=== PATIENT | female | born 1950 | race Caucasian/White ===

== ENCOUNTER 2016-08-24 09:06 | Day surgery (SDC) | payer BC ==
[2016-08-22 10:50] VITALS: BMI 26.4
[~2016-08-24 09:06] MED LIST: LACTATED RINGERS 1,000 ML IV SCH
[2016-08-24] MEDS ORDERED: LIDOCAINE 1% 20 ML VIAL (10MG/ML) FOR IV START INTRADERMA ONE (09:20)
[2016-08-24 09:31] VITALS: TEMP 97
[2016-08-24] MEDS ORDERED: PROPOFOL 10 MG/ML 20 ML VIAL IV ONE (09:55)
[2016-08-24 10:46] VITALS: BP 110/72; PULSE 68; RESP 18
--- NOTE | 2016-08-24 10:47 | P.PCN ---
Date of Procedure: 08/24/16 Procedure(s) Performed: BRIEF HISTORY: Patient is a 65-year-old pleasant white female scheduled for an elective colonoscopy as a part of screening for colorectal neoplasia. PROCEDURE PERFORMED: Colonoscopy with snare polypectomy. PREOPERATIVE DIAGNOSIS: Screening for colon cancer. IV sedation per Anesthesia. PROCEDURE: After informed consent was obtained, the patient, was brought into the endoscopy unit. IV conscious sedation was administered by Anesthesia under continuous monitoring. Initially the Olympus CF-160 flexible video colonoscope was then inserted in the rectum, gradually advanced into the cecum without any difficulty. Careful examination was performed as the scope was gradually being withdrawn. Ileocecal valve and the appendiceal orifice were visualized and appeared normal. Prep was excellent. Mucosa of the cecum, ascending colon, transverse colon, descending colon, appeared normal. In the rectum; there was a 2 cm thick pedunculated polyp that was removed by snare polypectomy. In the proximal rectum there were 2 polyps measuring 1 cm size removed by snare polypectomy. Moderate sigmoid diverticulosis seen. The rest of the sigmoid colon, and rectum appeared normal. Retroflexion was performed in the rectum and no lesions were seen. The patient tolerated the procedure well. IMPRESSION: 2 cm thick pedunculated sigmoid polyp status post polypectomy 1 cm 2 proximal rectal polyps status post polypectomy Moderate sigmoid diverticula cyst. RECOMMENDATIONS: Findings of this examination were discussed with the patient as well as her family. She was advised to follow with the biopsy results. If the biopsy shows a tubular adenoma she can have a repeat colonoscopy in 3 years.
== END 2016-08-24 11:14 | disposition home or self-care (01) ==
LOC: ORWHC2ENDO 09:06
PROVIDERS: ATTEND Internal Medicine Gastroenterology
DX: Z12.11 Encounter for screening for malignant neoplasm of colon (principal); D12.5 Benign neoplasm of sigmoid colon; D12.8 Benign neoplasm of rectum; K57.30 Diverticulosis of large intestine without perforation or abscess without bleeding; Z72.0 Tobacco use
CPT/HCPCS: 45385; 88305; J2704; 99153

== ENCOUNTER → 2019-01-09 | Outpatient (CLI) | payer MEDICARE ==
--- NOTE | 2019-01-09 15:41 | XR ---
EXAMINATION TYPE: XR chest 2V DATE OF EXAM: 01/09/2019 COMPARISON: NONE HISTORY: Back pain.Z00.00 per order. TECHNIQUE: Frontal and lateral views of the chest are obtained. FINDINGS: There is no focal air space opacity, pleural effusion, or pneumothorax seen. The cardiac silhouette size is within normal limits. Multilevel spurring of the thoracic spine is present. IMPRESSION: No acute cardiopulmonary process.
== END | disposition home or self-care (01) ==
LOC: RADXRMAIN 15:25
PROVIDERS: ATTEND Family Medicine
DX: Z00.00 Encounter for general adult medical examination without abnormal findings (principal)
CPT/HCPCS: 71046

== ENCOUNTER → 2020-12-30 | Outpatient (CLI) | payer MEDICARE | END | disposition home or self-care (01) | LOC: LABWHC1 14:08 | PROVIDERS: ATTEND Psychiatry & Neurology Pain Medicine | DX: E55.9 Vitamin D deficiency, unspecified (principal) | CPT/HCPCS: 36415; 82306 ==

== ENCOUNTER 2021-08-22 18:05 | Emergency (ER) | payer MEDICARE ==
[2021-08-22] MEDS ORDERED: SODIUM CHLORIDE 0.9% 500 ML 500 ML IV STA (18:18)
[2021-08-22 18:19] VITALS: PULSE 71; RESP 18; TEMP 98.5
--- NOTE | 2021-08-22 18:29 | ED ---
General Adult HPI - General Chief complaint: Altered Mental Status Stated complaint: weakness Time Seen by Provider: 08/22/21 18:10 Source: patient, EMS, RN notes reviewed, old records reviewed Mode of arrival: EMS Limitations: altered mental status, physical limitation - History of Present Illness Initial comments: This is a 70-year-old female presents emergency Department from a alf with a history of dementia. Patient herself does not know why she is here she has no complaints she denies chest pain difficult breathing shortness of breath or any injury. Patient denies any nausea vomiting. Patient was sent in for generalized weakness onset 3 days ago and we have no further history because no one came with the patient and there is no family member here at this time. - Related Data Home Medications Medication Instructions Recorded Confirmed No Known Home Medications 08/22/16 08/22/16 Allergies Allergy/AdvReac Type Severity Reaction Status Date / Time No Known Allergies Allergy Verified 08/22/21 20:00 Review of Systems ROS Statement: Those systems with pertinent positive or pertinent negative responses have been documented in the HPI. ROS Other: All systems not noted in ROS Statement are negative. Past Medical History Past Medical History: No Reported History, Unable to Obtain History of Any Multi-Drug Resistant Organisms: None Reported, Unobtainable Past Surgical History: No Surgical Hx Reported, Unable to Obtain Past Anesthesia/Blood Transfusion Reactions: No Reported Reaction, Motion Sickness Additional Past Anesthesia/Blood Transfusion Reaction / Comment(s): WORK UP DURING SURGERY WITH FOOT SURGERY" Past Psychological History: Anxiety, Bipolar Smoking Status: Unknown if ever smoked Past Alcohol Use History: Unable to Obtain, Rare Past Drug Use History: None Reported, Unable to Obtain - Past Family History Father Family Medical History: Cancer General Exam - General Exam Comments Initial Comments: GENERAL: Patient is well-developed and well-nourished. Patient is nontoxic and well- hydrated and is in no acute distress. ENT: Neck is soft and supple. No significant lymphadenopathy is noted. Oropharynx is clear. Moist mucous membranes. Neck has full range of motion without eliciting any pain. EYES: The sclera were anicteric and conjunctiva were pink and moist. Extraocular movements were intact and pupils were equal round and reactive to light. Eyelids were unremarkable. PULMONARY: Unlabored respirations. Good breath sounds bilaterally. No audible rales rhonchi or wheezing was noted. CARDIOVASCULAR: There is a regular rate and rhythm without any murmurs gallops or rubs. ABDOMEN: Soft and nontender with normal bowel sounds. SKIN: Skin is clear with no lesions or rashes and otherwise unremarkable. NEUROLOGIC: Patient is alert and oriented 2. Cranial nerves II through XII are grossly intact. Motor and sensory are also intact. Normal speech, volume and content. Symmetrical smile. MUSCULOSKELETAL: Normal extremities with adequate strength and full range of motion. No lower extremity swelling or edema. No calf tenderness. LYMPHATICS: No significant lymphadenopathy is noted PSYCHIATRIC: Normal psychiatric evaluation. Limitations: altered mental status, physical limitation Course Vital Signs 08/22/21 18:10 Temperature 98.5 F Pulse Rate 71 Respiratory 18 Rate Blood Pressure 119/74 O2 Sat by Pulse 96 Oximetry Medical Decision Making - Medical Decision Making EKG shows sinus bradycardia at a rate of 58 bpm AK interval is 144 QRS is 65 Q-T intervals 353 QTC is 349. Patient's EKG shows no ST segment elevation or depression. Chest x-ray shows no acute abnormality. Patient received a liter fluid while in the emergency department and I will back and reevaluated the patient's daughter was in the room and she stated that the patient was now back to her baseline. The main reason they sent her in is because she was weak all day today and wasn't eating or drinking today but this evening she did start drinking after she received fluids in the emergency department she seemed much improved. Patient herself had no complaints the daughter felt as though at this point time she was safe to go back to her facility. Daughter stated that the patient just started carbidopa yesterday morning and this morning. - Lab Data Result diagrams: 08/22/21 18:38 08/22/21 18:36 Lab Results 08/22/21 08/22/21 08/22/21 Range/Units 18:36 18:36 18:36 WBC (3.8-10.6) k/uL RBC (3.80-5.40) m/uL Hgb (11.4-16.0) gm/dL Hct (34.0-46.0) % MCV (80.0-100.0) fL MCH (25.0-35.0) pg MCHC (31.0-37.0) g/dL RDW (11.5-15.5) % Plt Count (150-450) k/uL MPV Neutrophils % % Lymphocytes % % Monocytes % % Eosinophils % % Basophils % % Neutrophils # (1.3-7.7) k/uL Lymphocytes # (1.0-4.8) k/uL Monocytes # (0-1.0) k/uL Eosinophils # (0-0.7) k/uL Basophils # (0-0.2) k/uL Sodium 137 (137-145) mmol/L Potassium 3.9 (3.5-5.1) mmol/L Chloride 104 (98-107) mmol/L Carbon Dioxide 24 (22-30) mmol/L Anion Gap 9 mmol/L BUN 17 (7-17) mg/dL Creatinine 0.71 (0.52-1.04) mg/dL Est GFR (CKD-EPI)AfAm >90 (>60 ml/min/1.73 sqM) Est GFR (CKD-EPI)NonAf 88 (>60 ml/min/1.73 sqM) Glucose 121 H (74-99) mg/dL Plasma Lactic Acid Giovany 1.7 (0.7-2.0) mmol/L Calcium 9.0 (8.4-10.2) mg/dL Magnesium 2.1 (1.6-2.3) mg/dL Total Bilirubin 0.7 (0.2-1.3) mg/dL AST 25 (14-36) U/L ALT 15 (4-34) U/L Alkaline Phosphatase 75 (38-126) U/L Troponin I <0.012 (0.000-0.034) ng/mL Total Protein 7.1 (6.3-8.2) g/dL Albumin 3.7 (3.5-5.0) g/dL Urine Color Urine Appearance (Clear) Urine pH (5.0-8.0) Ur Specific [place] (1.001-1.035) Urine Protein (Negative) Urine Glucose (UA) (Negative) Urine Ketones (Negative) Urine Blood (Negative) Urine Nitrite (Negative) Urine Bilirubin (Negative) Urine Urobilinogen (<2.0) mg/dL Ur Leukocyte Esterase (Negative) Urine RBC (0-5) /hpf Ur Squamous Epith Cells (0-4) /hpf 08/22/21 08/22/21 Range/Units 18:38 18:59 WBC 4.9 (3.8-10.6) k/uL RBC 4.17 (3.80-5.40) m/uL Hgb 13.2 (11.4-16.0) gm/dL Hct 40.2 (34.0-46.0) % MCV 96.5 (80.0-100.0) fL MCH 31.6 (25.0-35.0) pg MCHC 32.8 (31.0-37.0) g/dL RDW 13.7 (11.5-15.5) % Plt Count 194 (150-450) k/uL MPV 8.6 Neutrophils % 62 % Lymphocytes % 26 % Monocytes % 6 % Eosinophils % 4 % Basophils % 1 % Neutrophils # 3.0 (1.3-7.7) k/uL Lymphocytes # 1.3 (1.0-4.8) k/uL Monocytes # 0.3 (0-1.0) k/uL Eosinophils # 0.2 (0-0.7) k/uL Basophils # 0.1 (0-0.2) k/uL Sodium (137-145) mmol/L Potassium (3.5-5.1) mmol/L Chloride (98-107) mmol/L Carbon Dioxide (22-30) mmol/L Anion Gap mmol/L BUN (7-17) mg/dL Creatinine (0.52-1.04) mg/dL Est GFR (CKD-EPI)AfAm (>60 ml/min/1.73 sqM) Est GFR (CKD-EPI)NonAf (>60 ml/min/1.73 sqM) Glucose (74-99) mg/dL Plasma Lactic Acid Giovany (0.7-2.0) mmol/L Calcium (8.4-10.2) mg/dL Magnesium (1.6-2.3) mg/dL Total Bilirubin (0.2-1.3) mg/dL AST (14-36) U/L ALT (4-34) U/L Alkaline Phosphatase (38-126) U/L Troponin I (0.000-0.034) ng/mL Total Protein (6.3-8.2) g/dL Albumin (3.5-5.0) g/dL Urine Color Yellow Urine Appearance Clear (Clear) Urine pH 7.0 (5.0-8.0) Ur Specific [place] 1.018 (1.001-1.035) Urine Protein Negative (Negative) Urine Glucose (UA) Negative (Negative) Urine Ketones Negative (Negative) Urine Blood Moderate H (Negative) Urine Nitrite Negative (Negative) Urine Bilirubin Negative (Negative) Urine Urobilinogen <2.0 (<2.0) mg/dL Ur Leukocyte Esterase Negative (Negative) Urine RBC 40 H (0-5) /hpf Ur Squamous Epith Cells <1 (0-4) /hpf Disposition Clinical Impression: Weakness, Adverse reaction to drug Disposition: HOME SELF-CARE Condition: Good Instructions (If sedation given, give patient instructions): Weakness (ED), Carbidopa/Levodopa (By mouth) Is patient prescribed a controlled substance at d/c from ED?: No Referrals: Phoenix Blakely MD [Primary Care Provider] - 1-2 days Time of Disposition: 20:07
[2021-08-22 18:47] LABS: Basophils # (A) 0.1 k/uL (0-0.2); Basophils % (A) 1 %; Eosinophils # (A) 0.2 k/uL (0-0.7); Eosinophils % (A) 4 %; HCT 40.2 % (34.0-46.0); HGB 13.2 gm/dL (11.4-16.0); Lymphocytes # (A) 1.3 k/uL (1.0-4.8); Lymphocytes % (A) 26 %; MCH 31.6 pg (25.0-35.0); MCHC 32.8 g/dL (31.0-37.0); MCV 96.5 fL (80.0-100.0); Mean Platelet Volume 8.6; Monocytes # (A) 0.3 k/uL (0-1.0); Monocytes % (A) 6 %; Neutrophils % (A) 62 %; Platelet Count 194 k/uL (150-450); RBC 4.17 m/uL (3.80-5.40); RDW 13.7 % (11.5-15.5); WBC 4.9 k/uL (3.8-10.6)
[2021-08-22 19:01] LABS: ALT 15 U/L (4-34); AST 25 U/L (14-36); African American GFR (CKD) >90 (>60 ml/min/1.73 sqM); Albumin 3.7 g/dL (3.5-5.0); Alkaline Phosphatase 75 U/L (38-126); Anion Gap 9 mmol/L; Blood Urea Nitrogen 17 mg/dL (7-17); Carbon Dioxide 24 mmol/L (22-30); Chloride 104 mmol/L (98-107); Glucose 121 mg/dL (74-99); Magnesium 2.1 mg/dL (1.6-2.3); Non-African American GFR(CKD) 88 (>60 ml/min/1.73 sqM); Potassium 3.9 mmol/L (3.5-5.1); Sodium 137 mmol/L (137-145); Total Bilirubin 0.7 mg/dL (0.2-1.3); Total Protein 7.1 g/dL (6.3-8.2)
--- NOTE | 2021-08-22 19:22 | XR ---
EXAMINATION TYPE: XR chest 2V DATE OF EXAM: 08/22/2021 7:17 PM COMPARISON:Chest radiographs from 01/09/2019 TECHNIQUE: XR chest 2V Frontal and lateral views of the chest. CLINICAL INDICATION:Female, 70 years old with history of Weakness; FINDINGS: Lungs/Pleura: There is no evidence of pleural effusion, focal consolidation, or pneumothorax. Pulmonary vascularity: Unremarkable. Heart/mediastinum: Cardiomediastinal silhouette is unremarkable. Musculoskeletal: No acute osseous pathology. IMPRESSION: No acute cardiopulmonary disease/process.
[2021-08-22 19:50] LABS: Appearance,Urine Clear (Clear); Bilirubin,Urine Negative (Negative); Blood,Urine Moderate (Negative); Color,Urine Yellow; Glucose,Urine (UA) Negative (Negative); Ketones,Urine Negative (Negative); Leukocyte Esterase,Urine Negative (Negative); Nitrite,Urine Negative (Negative); Protein,Urine Negative (Negative); RBC,Urine 40 /hpf (0-5); Specific Gravity,Urine 1.018 (1.001-1.035); Squamous Epithelial Cell,Urine <1 /hpf (0-4); Urobilinogen,Urine <2.0 mg/dL (<2.0)
[2021-08-22 20:16] LABS: Partial Thromboplastin Time 22.1 sec (22.0-30.0); Prothrombin Time 10.9 sec (9.0-12.0)
[2021-08-22 20:17] VITALS: BP 117/81
== END 2021-08-22 20:21 | disposition home or self-care (01) ==
LOC: SUPCPDRO 18:05 → EC 18:05
DX: R53.1 Weakness (principal); T50.905A Adverse effect of unspecified drugs, medicaments and biological substances, initial encounter; F41.9 Anxiety disorder, unspecified; F31.9 Bipolar disorder, unspecified
CPT/HCPCS: 36415; 71046; 80053; 81001; 83605; 83735; 84484; 85025; 85610; 85730; 96360; 99285

== ENCOUNTER 2022-02-28 08:55 | Day surgery (SDC) | payer MEDICARE ==
[2022-02-27 13:12] VITALS: BMI 25.4
--- NOTE | 2022-02-27 20:21 | P.GSHP ---
History of Present Illness H&P Date: 02/27/22 71 yo female with dementia. sHe has recurrent utis. She had an evaluation that identified some small stones in the bladder. Due to her dementia she comes for cysto probable cystolithotripsy. - Review of Systems ROS unobtainable: Reports: due to mental status Past Medical History Past Medical History: Dementia, Thyroid Disorder Additional Past Medical History / Comment(s): "Recent UTI, finished antibiotics today." History of Any Multi-Drug Resistant Organisms: None Reported Past Surgical History: Bladder Surgery Additional Past Surgical History / Comment(s): Bladder lift, nasal surgery, foot surgery. Past Anesthesia/Blood Transfusion Reactions: No Reported Reaction, Motion Sickness Additional Past Anesthesia/Blood Transfusion Reaction / Comment(s): "WORK UP DURING SURGERY WITH FOOT SURGERY" Past Psychological History: Anxiety, Bipolar Smoking Status: Former smoker, Unknown if ever smoked Past Alcohol Use History: None Reported Additional Past Alcohol Use History / Comment(s): Quit smoking 1 yr ago. STARTED SMOKING AT AGE 19. Past Drug Use History: None Reported - Past Family History Father Family Medical History: Cancer Sister(s) Family Medical History: Cancer Medications and Allergies Home Medications Medication Instructions Recorded Confirmed Type Acetaminophen [Tylenol Arthritis] 650 mg PO DAILY@0700 08/22/21 02/27/22 History Acetaminophen [Tylenol Arthritis] 650 mg PO Q8H PRN 08/22/21 02/27/22 History Cholecalciferol [Vitamin D3 (125 125 mcg PO DAILY@0708/22/21 02/27/22 History Mcg = 5000 Iu)] LORazepam [Ativan] 1 mg PO TID PRN 08/22/21 02/27/22 History Levothyroxine Sodium [Synthroid] 25 mcg PO DAILY@0708/22/21 02/27/22 History Memantine [Namenda] 10 mg PO BID@0700,1900 08/22/21 02/27/22 History Nystatin 100,000Unit/gm Cream 1 applic TOPICAL BID PRN 08/22/21 02/27/22 History [Mycostatin Cream] Magnesium Hydroxide [Milk of 2,400 mg PO DAILY PRN 10/05/21 02/27/22 History Magnesia] Escitalopram [Lexapro] 20 mg PO DAILY@0700 02/13/22 02/27/22 History Cephalexin [Keflex] 500 mg PO Q12HR 02/27/22 02/27/22 History Allergies Allergy/AdvReac Type Severity Reaction Status Date / Time seasonal Allergy Dyspnea Uncoded 02/27/22 12:54 Surgical - Exam - General well developed, well nourished, no distress - Eyes normal ocular movement, no icteric - ENT no hearing loss, no congestion - Neck no masses, trachea midline - Respiratory normal respiratory effort, clear to auscultation - Abdomen Abdomen: soft, non tender, no guarding, no rigid, no rebound - Integumentary no rash, no abnormal pigmentation - Neurologic confused Assessment and Plan Assessment: Impression: recurrent uti, bladder stones, dementia Plan: cysto with cystolithotripsy
[~2022-02-28 08:55] MED LIST changes: +AMPICILLIN 1,000 MG in SODIUM CHLORIDE 0.9% 50 ML IVPB PRN; +GENTAMICIN IN NACL ISO-OSM PMX 80 MG in SALINE 1 100ML.BAG IVPB PRN; +HYDROmorphone 0.5 MG/0.5 ML SYRINGE IVP PRN; +LIDOCAINE 1% (10MG/ML) FOR IV START INTRADERMA PRN; +ONDANSETRON 4 MG/2 ML VIAL IVP ONE
[2022-02-28 09:43] VITALS: RESP 16
[2022-02-28] MEDS ORDERED: ONDANSETRON 4 MG/2 ML VIAL IVP ONE (09:49)
[2022-02-28] MEDS ORDERED: ePHEDrine 50 MG/ML 1 ML VIAL ONE (10:06)
[2022-02-28] MEDS ORDERED: SUCCINYLCHOLINE CHLORIDE 200 MG/10 ML VIAL IV ONE (10:06)
[2022-02-28] MEDS ORDERED: GLYCOPYRROLATE 0.2 MG/ML 2 ML VIAL ONE (10:06)
[2022-02-28] MEDS ORDERED: ROCURONIUM 10 MG/ML (5 ML VIAL) IV ONE (10:06)
[2022-02-28] MEDS ORDERED: fentaNYL (PF) 50 MCG/ML 2 ML AMP ONE (10:06)
[2022-02-28] MEDS ORDERED: LIDOCAINE 2% INJ 20 MG/ML (2 ML VIAL) ONE (10:06)
[2022-02-28] MEDS ORDERED: PROPOFOL 10 MG/ML 20 ML VIAL IV ONE (10:06)
[2022-02-28] MEDS ORDERED: NEOSTIGMINE 1 MG/ML 10 ML VIAL ONE (10:06)
[2022-02-28] MEDS ORDERED: IOPAMIDOL-370 50ML BTL MISCELLANE ONE (10:32)
--- NOTE | 2022-02-28 10:50 | P.OP ---
Date of Procedure: 02/28/22 Preoperative Diagnosis: Recurrent urinary tract infection, bladder stone Postoperative Diagnosis: Same Procedure(s) Performed: Cystoscopy, cystolithotripsy with laser, bilateral retrograde pyelograms Anesthesia: ROCAELA Surgeon: Hemant Horton Estimated Blood Loss (ml): 0 Pathology: other (Stone) Condition: stable Disposition: PACU Indications for Procedure: The patient is a 71-year-old female who lives in adult foster care due to mental handicap. She has had recurring urinary infection. She had a computed tomography scan that showed a bladder stone. She comes for cystoscopy cystolithotripsy and retrograde pyelogram Description of Procedure: Patient brought to the operating suite. Given general anesthesia. Placed lithotomy position with sterile prep and drape. It is noted that the patient has chronic excoriation from incontinence as well as stool per rectum. After sterile prep and drape cystoscopy Foroblique lens and 21-Finnish sheath identifies a chronically inflamed bladder. The ureteral orifices are normal. There is a 1 cm posterior wall bladder stone. In370 probe the stone was broken into tiny pieces and flushed out of the bladder. With an 8cone-tip catheter bilateral grade pyelogram performed. The ureters of normal course and caliber. No filling defect. The collecting system is normal. The ureters drained normally The bladder is drained the stones are collected the patient is awakened and returned recovery room good condition Impression bladder calculus removed. No more retrograde pyelograms. Recurrent infection can be aggravated by the stone but is probably due to her chronic incontinence both urine and stool. This is been related to the foster retirement.
--- NOTE | 2022-02-28 10:59 | FL ---
Fluoroscopy INDICATION: Pain FINDINGS: Fluoroscopy time: 25 seconds. Images obtained: 6. IMPRESSIONS: 1. Documentation of fluoroscopy.
[2022-02-28 11:08] VITALS: TEMP 97
[2022-02-28 11:58] VITALS: BP 113/60; PULSE 74
== END 2022-02-28 12:18 ==
LOC: OR 08:55
PROVIDERS: ATTEND Urology
DX: N21.0 Calculus in bladder (principal); N39.0 Urinary tract infection, site not specified; F03.90 Unspecified dementia, unspecified severity, without behavioral disturbance, psychotic disturbance, mood disturbance, and anxiety; E07.9 Disorder of thyroid, unspecified; F41.9 Anxiety disorder, unspecified; F31.9 Bipolar disorder, unspecified; F17.200 Nicotine dependence, unspecified, uncomplicated; Z91.040 Latex allergy status; Z80.9 Family history of malignant neoplasm, unspecified; Z87.898 Personal history of other specified conditions
CPT/HCPCS: 52317; 52005; 82365; C1769; C1758; J1580; J0330; J2710; J2405; J3010; J2704; Q9967; J2001

== ENCOUNTER 2023-06-20 17:20 | Inpatient (IN) | payer MEDICARE ==
[2023-06-20] MEDS ORDERED: HYDROcodone/APAP 5-325MG 1 EACH TAB PO STA (18:57)
--- NOTE | 2023-06-20 19:05 | ED ---
General Adult HPI - General Chief complaint: Skin/Abscess/Foreign Body Stated complaint: Wounds, Possible sepsis Time Seen by Provider: 06/20/23 17:30 Source: patient Mode of arrival: ambulatory Limitations: no limitations - History of Present Illness Initial comments: 72-year-old female with past history of advanced dementia who presents to the emergency department with sacral wound. Patient resides in an [facility] home. Daughter is at bedside and provides the history. She reports that the patient developed a sacral wound last week. She has not had sacral wounds previously. They started her on Augmentin on the . They're attempting local wound care. Wound has become more foul smelling and is causing the patient more pain therefore it was recommended that the patient be transferred to the emergency department no report of any fevers. Patient cannot provide history therefore HPI is limited - Related Data Home Medications Medication Instructions Recorded Confirmed Acetaminophen [Tylenol Arthritis] 650 mg PO DAILY@0700 08/22/21 06/20/23 Acetaminophen [Tylenol Arthritis] 650 mg PO Q8H PRN 08/22/21 06/20/23 Cholecalciferol [Vitamin D3 (125 125 mcg PO DAILY@0700 08/22/21 06/20/23 Mcg = 5000 Iu)] LORazepam [Ativan] 1 mg PO TID PRN 08/22/21 06/20/23 Levothyroxine Sodium [Synthroid] 25 mcg PO DAILY@0700 08/22/21 06/20/23 Memantine [Namenda] 10 mg PO BID@0700,1900 08/22/21 06/20/23 Nystatin 100,000Unit/gm Cream 1 applic TOPICAL BID PRN 08/22/21 06/20/23 [Mycostatin Cream] Magnesium Hydroxide [Milk of 2,400 mg PO DAILY PRN 10/05/21 06/20/23 Magnesia] Escitalopram [Lexapro] 20 mg PO DAILY@0700 02/13/22 06/20/23 Amoxic-Pot Clav 500-125 mg 1 tab PO TID@0600,1400,2200 06/20/23 06/20/23 [Augmentin 500-125 mg] Folic Acid 0.4 mg PO DAILY@0700 06/20/23 06/20/23 Sennosides/Docusate Sodium [Senna 2 tab PO HS@1900 06/20/23 06/20/23 Plus 8.6-50 mg Tablet] Tobramycin 0.3% Ophth Soln [Tobrex 1 drop BOTH EYES Q4HR 06/20/23 06/20/23 0.3% Ophth Soln] traMADol HCL 50 mg PO TID@06,14,20 PRN 06/20/23 06/20/23 Allergies Allergy/AdvReac Type Severity Reaction Status Date / Time seasonal Allergy Severe Dyspnea Uncoded 06/20/23 18:02 Review of Systems ROS Statement: Those systems with pertinent positive or pertinent negative responses have been documented in the HPI. ROS Other: All systems not noted in ROS Statement are negative. Past Medical History Past Medical History: Dementia, Thyroid Disorder Additional Past Medical History / Comment(s): "Recent UTI, finished antibiotics today." History of Any Multi-Drug Resistant Organisms: None Reported Past Surgical History: Bladder Surgery Additional Past Surgical History / Comment(s): Bladder lift, nasal surgery, foot surgery. Past Anesthesia/Blood Transfusion Reactions: No Reported Reaction, Motion Sickness Additional Past Anesthesia/Blood Transfusion Reaction / Comment(s): "WORK UP DURING SURGERY WITH FOOT SURGERY" Past Psychological History: Anxiety, Bipolar Smoking Status: Former smoker, Unknown if ever smoked Past Alcohol Use History: None Reported Past Drug Use History: None Reported - Past Family History Father Family Medical History: Cancer Sister(s) Family Medical History: Cancer General Exam Limitations: altered mental status General appearance: alert, in no apparent distress Head exam: Present: atraumatic, normocephalic, normal inspection Eye exam: Present: normal appearance, PERRL, EOMI. Absent: scleral icterus, conjunctival injection, periorbital swelling ENT exam: Present: normal exam, mucous membranes moist Neck exam: Present: normal inspection. Absent: tenderness, meningismus, lymphadenopathy Respiratory exam: Present: normal lung sounds bilaterally. Absent: respiratory distress, wheezes, rales, rhonchi, stridor Cardiovascular Exam: Present: regular rate, normal rhythm, normal heart sounds. Absent: systolic murmur, diastolic murmur, rubs, gallop, clicks GI/Abdominal exam: Present: soft. Absent: tenderness Back exam: Present: other (Large 8 x 8 cm sacral wound, stage III with malodorous drainage) Neurological exam: Present: alert Psychiatric exam: Present: anxious, flat affect Course Vital Signs 06/20/23 06/20/23 06/20/23 17:23 20:14 22:27 Temperature 98 F Pulse Rate 97 93 99 Respiratory 18 18 18 Rate Blood Pressure 106/67 95/49 100/58 O2 Sat by Pulse 96 97 95 Oximetry Medical Decision Making - Medical Decision Making Was pt. sent in by a medical professional or institution (, [facility], [employer], urgent care, hospital, or retirement...) When possible be specific @ -[facility] home Did you speak to anyone other than the patient for history (EMS, parent, family, police, friend...)? What history was obtained from this source @ -daughter, ems Did you review nursing and triage notes (agree or disagree)? Why? @ -I reviewed and agree with nursing and triage notes Were old charts reviewed (outside hosp., previous admission, EMS record, old EKG, old radiological studies, urgent care reports/EKG's, retirement records)? Report findings @ -I reviewed patient's medication list from her facility Differential Diagnosis (chest pain, altered mental status, abdominal pain women, abdominal pain men, vaginal bleeding, weakness, fever, dyspnea, syncope, headache, dizziness, GI bleed, back pain, seizure, CVA, palpatations, mental health, musculoskeletal)? @ -Cellulitis, bedsore, necrotizing fasciitis, sepsis EKG interpreted by me (3pts min.). @ -Yes and demonstrates sinus rhythm with a rate of 86. WA interval 143. QRS 74. QTC of 387. No acute ST segment elevations or depressions X-rays interpreted by me (1pt min.). @ -None done CT interpreted by me (1pt min.). @ -None done U/S interpreted by me (1pt. min.). @ -None done What testing was considered but not performed or refused? (CT, X-rays, U/S, labs)? Why? @ -None What meds were considered but not given or refused? Why? @ -None Did you discuss the management of the patient with other professionals (professionals i.e. , [facility], [employer], lab, RT, psych nurse, healthcare social worker, public health outreach worker, teacher, humane officer, medical case worker)? Give summary @ -With Dr. Johns for admission Was smoking cessation discussed for >3mins.? @ -No Was critical care preformed (if so, how long)? @ -No Were there social determinants of health that impacted care today? How? (Homelessness, low income, unemployed, alcoholism, drug addiction, transportation, low edu. Level, literacy, decrease access to med. care, custodial, rehab)? @ -No Was there de-escalation of care discussed even if they declined (Discuss DNR or withdrawal of care, Hospice)? DNR status @ -No What co-morbidities impacted this encounter? (DM, HTN, Smoking, COPD, CAD, Cancer, CVA, ARF, Chemo, Hep., AIDS, mental health diagnosis, sleep apnea, morbid obesity)? @ -Advanced dementia Was patient admitted / discharged? Hospital course, mention meds given and route, prescriptions, significant lab abnormalities, going to OR and other pertinent info. @ -Admitted. Upon arrival patient was placed into room 21. There are history and physical exam was performed. Patient does have significantly advanced bedsore. I did order her a Mcdavid. Laboratory studies were conducted. She is started on Unasyn and Vanco. Recommended admission for wound care consultation. Daughter was agreeable to this and the patient was admitted in stable condition Undiagnosed new problem with uncertain prognosis? @ -No Drug Therapy requiring intensive monitoring for toxicity (Heparin, Nitro, Insulin, Cardizem)? @ -No Were any procedures done? @ -No Diagnosis/symptom? @ -Acute sacral wound, failing outpatient treatment Acute, or Chronic, or Acute on Chronic? @ -Acute Uncomplicated (without systemic symptoms) or Complicated (systemic symptoms)? @ -Complicated Side effects of treatment? @ -No Exacerbation, Progression, or Severe Exacerbation? @ -No Poses a threat to life or bodily function? How? (Chest pain, [place], [place], pneumonia, PE, COPD, DKA, ARF, appy, cholecystitis, CVA, Diverticulitis, Homicidal, Suicidal, threat to staff... and all critical care pts) @ -No - Lab Data Result diagrams: 06/20/23 18:32 06/20/23 18:32 Lab Results 06/20/23 06/20/23 06/20/23 Range/Units 18:32 18:32 18:32 WBC 7.6 (3.8-10.6) k/uL RBC 3.40 L (3.80-5.40) m/uL Hgb 11.1 L (11.4-16.0) gm/dL Hct 33.5 L (34.0-46.0) % MCV 98.5 (80.0-100.0) fL MCH 32.6 (25.0-35.0) pg MCHC 33.0 (31.0-37.0) g/dL RDW 12.9 (11.5-15.5) % Plt Count 259 (150-450) k/uL MPV 7.6 Neutrophils % 85 % Lymphocytes % 8 % Monocytes % 4 % Eosinophils % 2 % Basophils % 0 % Neutrophils # 6.5 (1.3-7.7) k/uL Lymphocytes # 0.6 L (1.0-4.8) k/uL Monocytes # 0.3 (0-1.0) k/uL Eosinophils # 0.1 (0-0.7) k/uL Basophils # 0.0 (0-0.2) k/uL Sodium 133 L (137-145) mmol/L Potassium 4.6 (3.5-5.1) mmol/L Chloride 100 (98-107) mmol/L Carbon Dioxide 25 (22-30) mmol/L Anion Gap 8 mmol/L BUN 24 H (7-17) mg/dL Creatinine 0.36 L (0.52-1.04) mg/dL Est GFR (CKD-EPI)AfAm >90 (>60 ml/min/1.73 sqM) Est GFR (CKD-EPI)NonAf >90 (>60 ml/min/1.73 sqM) Glucose 98 (74-99) mg/dL Plasma Lactic Acid Giovany 1.2 (0.7-2.0) mmol/L Calcium 8.8 (8.4-10.2) mg/dL Total Bilirubin 0.7 (0.2-1.3) mg/dL AST 39 H (14-36) U/L ALT 24 (4-34) U/L Alkaline Phosphatase 73 (38-126) U/L C-Reactive Protein 17.6 H (<1.0) mg/dL Total Protein 6.0 L (6.3-8.2) g/dL Albumin 2.9 L (3.5-5.0) g/dL Disposition Clinical Impression: Sacral wound Disposition: ADMITTED IP TO THIS HOSP Condition: Stable Is patient prescribed a controlled substance at d/c from ED?: No Time of Disposition: 20:40 Decision to Admit Reason: Admit from EC Decision Date: 06/20/23 Decision Time: 20:40
[2023-06-20 19:19] LABS: ALT 24 U/L (4-34); African American GFR (CKD) >90 (>60 ml/min/1.73 sqM); Anion Gap 8 mmol/L; Blood Urea Nitrogen 24 mg/dL (7-17); Calcium 8.8 mg/dL (8.4-10.2); Carbon Dioxide 25 mmol/L (22-30); Chloride 100 mmol/L (98-107); Glucose 98 mg/dL (74-99); Non-African American GFR(CKD) >90 (>60 ml/min/1.73 sqM); Sodium 133 mmol/L (137-145); Total Bilirubin 0.7 mg/dL (0.2-1.3)
[2023-06-20 19:26] LABS: AST 39 U/L (14-36); Albumin 2.9 g/dL (3.5-5.0); Alkaline Phosphatase 73 U/L (38-126); Potassium 4.6 mmol/L (3.5-5.1)
[2023-06-20 19:46] LABS: C Reactive Protein 17.6 mg/dL (<1.0)
[2023-06-20 19:48] LABS: Basophils % (A) 0 %; Eosinophils # (A) 0.1 k/uL (0-0.7); Eosinophils % (A) 2 %; HCT 33.5 % (34.0-46.0); HGB 11.1 gm/dL (11.4-16.0); Lymphocytes # (A) 0.6 k/uL (1.0-4.8); Lymphocytes % (A) 8 %; MCH 32.6 pg (25.0-35.0); MCV 98.5 fL (80.0-100.0); Mean Platelet Volume 7.6; Monocytes # (A) 0.3 k/uL (0-1.0); Monocytes % (A) 4 %; Neutrophils # (A) 6.5 k/uL (1.3-7.7); Neutrophils % (A) 85 %; Platelet Count 259 k/uL (150-450); RDW 12.9 % (11.5-15.5); WBC 7.6 k/uL (3.8-10.6)
[2023-06-20] MEDS ORDERED: NALOXONE 0.4 MG/ML 1 ML VIAL IV PRN (20:56)
[2023-06-20] MEDS ORDERED: AMPICILLIN-SULBACTAM 3 GM in SODIUM CHLORIDE 0.9% 100 ML IVPB STA (20:59)
[2023-06-20] MEDS ORDERED: VANCOMYCIN IV PER PHARMACY 1 EACH MISC MISCELLANE PRN (20:59)
[2023-06-20] MEDS ORDERED: VANCOMYCIN 1,250 MG in SODIUM CHLORIDE 0.9% 250 ML IVPB ONE (21:30)
[2023-06-20] MEDS: SODIUM CHLORIDE 0.9% 1,000 ML IV SCH (22:11)
[2023-06-20] MEDS: HYDROcodone/APAP 5-325MG 1 EACH TAB PO PRN (23:06)
[2023-06-21] MEDS ORDERED: LORazepam 1 MG TAB PO PRN (01:48)
[2023-06-21 02:03] LABS: Erythrocyte Sedimentation Rate 78 mm/Hr (0-30)
--- NOTE | 2023-06-21 02:47 | P.HPIM ---
History of Present Illness H&P Date: 06/21/23 Patient is a 72-year-old female with a PMH of dementia and hypothyroidism who was brought into the emergency room from [facility] home for a sacral ulcer. History obtained from the chart as the patient was not answering any questions which is baseline for her. Attempted to contact the patient's family at the number listed in the chart with no response. The patient had reportedly developed a sacral ulcer which was noticed last week and that she was started on Augmentin on the along with local wound care. The wound however became foul smelling and the patient was sent to the emergency room for further care. EKG in emergency room revealed sinus rhythm at 86 bpm with poor baseline as reviewed by me. Laboratory evaluation was remarkable for hemoglobin of 11.1, ESR 78, sodium 133, BUN 24, creatinine 0.36, CRP 17.6, albumin 2.9. ED documentation reviewed and case discussed with ED provider. Review of systems: Unable to obtain due to mental status Physical examination: Vital signs reviewed General: Thin elderly female, no distress, appears at stated age Derm: Large unstageable sacral left-sided wound noted with purulent and necrotic base with discharge and surrounding erythema, warm Head: atraumatic, normocephalic, symmetric Eyes: EOMI, no lid lag, anicteric sclera, pupils equal round reactive to light ENT: Nose and ears atraumatic Neck: No cervical lymphadenopathy, trachea midline, supple Mouth: no lip lesion, mucus membranes moist Cardiovascular: S1S2 reg, no murmur, positive dorsalis pedis pulse bilateral, no edema Lungs: CTA bilateral, no rhonchi, no rales, no accessory muscle use Abdominal: soft, nontender to palpation, no guarding Ext: no gross muscle atrophy, no contractures, moving all extremities Neuro: CN II-XI grossly intact, no gross focal neuro deficits Psych: Not answering any questions, makes eye contact Assessment: Large sacral ulcer, failed outpatient treatment Chronic conditions: Hypothyroidism, dementia Imaging: EKG in emergency room revealed sinus rhythm at 86 bpm with poor baseline as reviewed by me. Data Review: Laboratory evaluation was remarkable for hemoglobin of 11.1, ESR 78, sodium 133, BUN 24, creatinine 0.36, CRP 17.6, albumin 2.9. Plan: Wound care consulted Continue with vancomycin and Unasyn for now due to extensive erythema and purulence Infectious disease also consulted Continue with remaining home medications DVT prophylaxis: Lovenox Subq The patient is admitted with an anticipated greater than 2 midnight stay for evaluation of sacral ulcer CODE STATUS: Full Code Discussed with: Patient Anticipated discharge place: [facility] Past Medical History Past Medical History: Dementia, Thyroid Disorder Additional Past Medical History / Comment(s): "Recent UTI, finished antibiotics today." History of Any Multi-Drug Resistant Organisms: None Reported Past Surgical History: Bladder Surgery Additional Past Surgical History / Comment(s): Bladder lift, nasal surgery, foot surgery. Past Anesthesia/Blood Transfusion Reactions: No Reported Reaction, Motion Sickness Additional Past Anesthesia/Blood Transfusion Reaction / Comment(s): "WORK UP DURING SURGERY WITH FOOT SURGERY" Past Psychological History: Anxiety, Bipolar Smoking Status: Former smoker, Unknown if ever smoked Past Alcohol Use History: None Reported Past Drug Use History: None Reported - Past Family History Father Family Medical History: Cancer Sister(s) Family Medical History: Cancer Medications and Allergies Home Medications Medication Instructions Recorded Confirmed Type Acetaminophen [Tylenol Arthritis] 650 mg PO DAILY@0700 08/22/21 06/20/23 History Acetaminophen [Tylenol Arthritis] 650 mg PO Q8H PRN 08/22/21 06/20/23 History Cholecalciferol [Vitamin D3 (125 125 mcg PO DAILY@0700 08/22/21 06/20/23 History Mcg = 5000 Iu)] LORazepam [Ativan] 1 mg PO TID PRN 08/22/21 06/20/23 History Levothyroxine Sodium [Synthroid] 25 mcg PO DAILY@0700 08/22/21 06/20/23 History Memantine [Namenda] 10 mg PO BID@0700,1900 08/22/21 06/20/23 History Nystatin 100,000Unit/gm Cream 1 applic TOPICAL BID PRN 08/22/21 06/20/23 History [Mycostatin Cream] Magnesium Hydroxide [Milk of 2,400 mg PO DAILY PRN 10/05/21 06/20/23 History Magnesia] Escitalopram [Lexapro] 20 mg PO DAILY@0700 02/13/22 06/20/23 History Amoxic-Pot Clav 500-125 mg 1 tab PO TID@0600,1400,2200 06/20/23 06/20/23 History [Augmentin 500-125 mg] Folic Acid 0.4 mg PO DAILY@0700 06/20/23 06/20/23 History Sennosides/Docusate Sodium [Senna 2 tab PO HS@1900 06/20/23 06/20/23 History Plus 8.6-50 mg Tablet] Tobramycin 0.3% Ophth Soln [Tobrex 1 drop BOTH EYES Q4HR 06/20/23 06/20/23 History 0.3% Ophth Soln] traMADol HCL 50 mg PO TID@06,14,20 PRN 06/20/23 06/20/23 History Allergies Allergy/AdvReac Type Severity Reaction Status Date / Time seasonal Allergy Severe Dyspnea Uncoded 06/20/23 18:02 Physical Exam Vitals: Vital Signs Temp Pulse Resp BP Pulse Ox 06/20/23 22:27 99 18 100/58 95 06/20/23 20:14 93 18 95/49 97 06/20/23 17:23 98 F 97 18 106/67 96 Intake and Output 06/20/23 06/20/23 06/21/23 14:59 22:59 06:59 Other: Weight 63.503 kg Results CBC & Chem 7: 06/20/23 18:32 06/20/23 18:32 Labs: Abnormal Lab Results - Last 24 Hours (Table) 06/20/23 06/20/23 Range/Units 18:32 18:32 RBC 3.40 L (3.80-5.40) m/uL Hgb 11.1 L (11.4-16.0) gm/dL Hct 33.5 L (34.0-46.0) % Lymphocytes # 0.6 L (1.0-4.8) k/uL ESR 78 H (0-30) mm/Hr Sodium 133 L (137-145) mmol/L BUN 24 H (7-17) mg/dL Creatinine 0.36 L (0.52-1.04) mg/dL AST 39 H (14-36) U/L C-Reactive Protein 17.6 H (<1.0) mg/dL Total Protein 6.0 L (6.3-8.2) g/dL Albumin 2.9 L (3.5-5.0) g/dL
[2023-06-21] MEDS: TOBRAMYCIN 0.3% OPHTH DROPS 5 ML BTL BOTH EYES SCH ×5 (04:42→20:25)
[2023-06-21] MEDS: AMPICILLIN-SULBACTAM 3 GM in SODIUM CHLORIDE 0.9% 100 ML IVPB SCH ×3 (06:02→21:19)
[2023-06-21] MEDS: HYDROcodone/APAP 5-325MG 1 EACH TAB PO PRN ×2 (06:12→10:45)
[2023-06-21] MEDS: ESCITALOPRAM 20 MG TAB PO SCH (06:12)
[2023-06-21] MEDS: MEMANTINE 10 MG TAB PO SCH ×2 (06:12→21:18)
[2023-06-21] MEDS: CHOLECALCIFEROL 125 MCG (5000 IU) TABLET PO SCH (06:12)
[2023-06-21] MEDS: LEVOTHYROXINE 25 MCG TAB PO SCH (06:12)
[2023-06-21 08:03] LABS: Basophils % (A) 0 %; Eosinophils # (A) 0.1 k/uL (0-0.7); Eosinophils % (A) 1 %; HCT 30.5 % (34.0-46.0); Lymphocytes # (A) 0.8 k/uL (1.0-4.8); Lymphocytes % (A) 10 %; MCH 32.7 pg (25.0-35.0); MCHC 32.9 g/dL (31.0-37.0); MCV 99.3 fL (80.0-100.0); Mean Platelet Volume 7.6; Monocytes # (A) 0.3 k/uL (0-1.0); Monocytes % (A) 4 %; Neutrophils # (A) 6.3 k/uL (1.3-7.7); Neutrophils % (A) 83 %; Platelet Count 309 k/uL (150-450); RBC 3.07 m/uL (3.80-5.40); RDW 12.9 % (11.5-15.5); WBC 7.6 k/uL (3.8-10.6)
[2023-06-21 08:06] LABS: African American GFR (CKD) >90 (>60 ml/min/1.73 sqM); Anion Gap 11 mmol/L; Blood Urea Nitrogen 17 mg/dL (7-17); Calcium 8.7 mg/dL (8.4-10.2); Carbon Dioxide 25 mmol/L (22-30); Chloride 101 mmol/L (98-107); Glucose 98 mg/dL (74-99); Non-African American GFR(CKD) >90 (>60 ml/min/1.73 sqM); Potassium 3.7 mmol/L (3.5-5.1); Sodium 137 mmol/L (137-145)
[2023-06-21] MEDS: ENOXAPARIN 40 MG/0.4 ML SYRINGE SQ SCH (08:14)
[2023-06-21] MEDS: VANCOMYCIN 1,250 MG in SODIUM CHLORIDE 0.9% 250 ML IVPB SCH ×2 (09:02→20:23)
--- NOTE | 2023-06-21 10:21 | P.CONS ---
History of Present Illness - Reason for Consult Consult date: 06/21/23 wound care - History of Present Illness This is a 72 year old patient who resides in an [facility] home. PMH is significant for dementia. Patient is a poor story and. Family is at the bedside. Family states that the patient has had a pressure ulcer to the sacrum for approximately 1 week. Patient has a stage III pressure ulcer to the right buttocks that is a cluster of 2 first ulceration measures 4 x 5 x 0.3 cm with significant amounts of Slough and nonviable tissue present no granulation noted. No tunneling or undermining noted. Second ulceration measures approximate 2 x 3 x 0.3 cm with significant amount of slough and nonviable tissue present no granulation seen within the wound bed no tunneling or undermining noted. Ulceration is odiferous. There is a small skin tear noted lateral to the cluster of 2 more than likely cause from the dressings. Family is unsure what they've been using for products. States that it just continues to get worse. Patient also has a stage I pressure ulcer to the right calcaneus. Family is unsure what is being utilized on the ulceration. Review of systems: Unable to obtain due to mental status Physical exam: General Appearance: Alert, cooperative, no distress, appears stated age. Skin: See HPI all other Skin color, texture, tugor normal, no rashes or lesions. Neurologic: Alert oriented x3 Assessment: 1. Stage III pressure ulcer sacrum 2. Stage I pressure ulcer right calcaneus Plan: 1. Sacral ulceration: Apply honey gel and border foam change Saturday. Turn patient every 2 hours. Reviewed the surface algorithm for the appropriate surface. 2. Right heel ulceration: Apply zinc and border foam. Utilize heel protector. 3. Patient would benefit from advanced wound care and wound care center family is unsure if that is something they're able to do. We will be happy to see her upon discharge. Thank you for this consultation any questions please contact the wound care center DNP note has been reviewed and discussed with Dr. Manzanares and the impression and plan of care has been directed as dictated. Past Medical History Past Medical History: Dementia, Thyroid Disorder Additional Past Medical History / Comment(s): "Recent UTI, finished antibiotics today." History of Any Multi-Drug Resistant Organisms: None Reported Past Surgical History: Bladder Surgery Additional Past Surgical History / Comment(s): Bladder lift, nasal surgery, foot surgery. Past Anesthesia/Blood Transfusion Reactions: No Reported Reaction, Motion Sickness Additional Past Anesthesia/Blood Transfusion Reaction / Comm: "WORK UP DURING SURGERY WITH FOOT SURGERY" Past Psychological History: Anxiety, Bipolar Smoking Status: Former smoker, Unknown if ever smoked Past Alcohol Use History: None Reported Past Drug Use History: None Reported - Past Family History Father Family Medical History: Cancer Sister(s) Family Medical History: Cancer Medications and Allergies Home Medications Medication Instructions Recorded Confirmed Type Acetaminophen [Tylenol Arthritis] 650 mg PO DAILY@0700 08/22/21 06/20/23 History Acetaminophen [Tylenol Arthritis] 650 mg PO Q8H PRN 08/22/21 06/20/23 History Cholecalciferol [Vitamin D3 (125 125 mcg PO DAILY@0700 08/22/21 06/20/23 History Mcg = 5000 Iu)] LORazepam [Ativan] 1 mg PO TID PRN 08/22/21 06/20/23 History Levothyroxine Sodium [Synthroid] 25 mcg PO DAILY@0700 08/22/21 06/20/23 History Memantine [Namenda] 10 mg PO BID@0700,1900 08/22/21 06/20/23 History Nystatin 100,000Unit/gm Cream 1 applic TOPICAL BID PRN 08/22/21 06/20/23 History [Mycostatin Cream] Magnesium Hydroxide [Milk of 2,400 mg PO DAILY PRN 10/05/21 06/20/23 History Magnesia] Escitalopram [Lexapro] 20 mg PO DAILY@0700 02/13/22 06/20/23 History Amoxic-Pot Clav 500-125 mg 1 tab PO TID@0600,1400,2200 06/20/23 06/20/23 History [Augmentin 500-125 mg] Folic Acid 0.4 mg PO DAILY@0700 06/20/23 06/20/23 History Sennosides/Docusate Sodium [Senna 2 tab PO HS@1900 06/20/23 06/20/23 History Plus 8.6-50 mg Tablet] Tobramycin 0.3% Ophth Soln [Tobrex 1 drop BOTH EYES Q4HR 06/20/23 06/20/23 History 0.3% Ophth Soln] traMADol HCL 50 mg PO TID@06,14,20 PRN 06/20/23 06/20/23 History Allergies Allergy/AdvReac Type Severity Reaction Status Date / Time seasonal Allergy Severe Dyspnea Uncoded 06/20/23 18:02 Physical Exam Vitals: Vital Signs Temp Pulse Resp BP Pulse Ox 06/21/23 06:46 97.6 F 81 20 100/73 95 06/21/23 04:45 97.6 F 80 18 92/55 95 06/21/23 03:30 76 12 100/58 95 06/20/23 22:30 98 12 100/58 95 06/20/23 22:27 99 18 100/58 95 06/20/23 20:30 92 14 95/49 96 06/20/23 20:14 93 18 95/49 97 06/20/23 20:10 96 12 106/67 96 06/20/23 17:23 98 F 97 18 106/67 96 Intake and Output 06/20/23 06/21/23 06/21/23 22:59 06:59 14:59 Other: Weight 63.503 kg Results CBC & Chem 7: 06/21/23 07:45 06/21/23 07:45 Labs: Abnormal Lab Results - Last 24 Hours (Table) 06/20/23 06/20/23 06/21/23 Range/Units 18:32 18:32 07:45 RBC 3.40 L 3.07 L (3.80-5.40) m/uL Hgb 11.1 L 10.0 L (11.4-16.0) gm/dL Hct 33.5 L 30.5 L (34.0-46.0) % Lymphocytes # 0.6 L 0.8 L (1.0-4.8) k/uL ESR 78 H (0-30) mm/Hr Sodium 133 L (137-145) mmol/L BUN 24 H (7-17) mg/dL Creatinine 0.36 L (0.52-1.04) mg/dL AST 39 H (14-36) U/L C-Reactive Protein 17.6 H (<1.0) mg/dL Total Protein 6.0 L (6.3-8.2) g/dL Albumin 2.9 L (3.5-5.0) g/dL 12/22/23 Range/Units 07:45 RBC (3.80-5.40) m/uL Hgb (11.4-16.0) gm/dL Hct (34.0-46.0) % Lymphocytes # (1.0-4.8) k/uL ESR (0-30) mm/Hr Sodium (137-145) mmol/L BUN (7-17) mg/dL Creatinine 0.31 L (0.52-1.04) mg/dL AST (14-36) U/L C-Reactive Protein (<1.0) mg/dL Total Protein (6.3-8.2) g/dL Albumin (3.5-5.0) g/dL Assessment and Plan (1) Pressure ulcer of sacral region, stage 3 Current Visit: Yes Status: Acute Code(s): L89.153 - PRESSURE ULCER OF SACRAL REGION, STAGE 3 SNOMED Code(s): 42075427411084 (2) Pressure ulcer of right heel, stage 1 Current Visit: Yes Status: Acute Code(s): L89.611 - PRESSURE ULCER OF RIGHT HEEL, STAGE 1 SNOMED Code(s): 84586163358445
[2023-06-21] MEDS ORDERED: SODIUM CHLORIDE 0.9% 1,000 ML IV ONE (11:38)
[2023-06-21] MEDS ORDERED: MORPHINE SULFATE 2 MG/ML SYRINGE IVP STA (11:43)
[2023-06-21] MEDS: SODIUM CHLORIDE 0.9% 1,000 ML IV SCH ×2 (11:47→21:18)
--- NOTE | 2023-06-21 14:34 | P.GSCN ---
History of Present Illness Consult date: 06/21/23 History of present illness: CHIEF COMPLAINT: Gluteal ulcer HISTORY OF PRESENT ILLNESS: This is a 72-year-old female with advanced dementia and bedbound. She presents the hospital with evidence of a large right gluteal ulcer and small left gluteal ulcer. She resides at an [facility] home. Daughter is at bedside and reports that they've started to noticed the sore on last last week. They tried local wound care and antibiotics with no improvement. There is foul odor. Patient reports pain in the area. She has no history of diabetes. PAST MEDICAL HISTORY: See below PAST SURGICAL HISTORY: See below MEDICATIONS: See below ALLERGIES: See below SOCIAL HISTORY: No illicit drug use. REVIEW OF SYSTEMS: CONSTITUTIONAL: Denies fever or chills. HEENT: Denies blurred vision, vision changes, or eye pain. Denies hemoptysis CARDIOVASCULAR: Denies chest pain or pressure. RESPIRATORY: No shortness of breath. GASTROINTESTINAL: See HPI for pertinent findings HEMATOLOGIC: Denies bleeding disorders. GENITOURINARY: Denies any blood in urine or increased urinary frequency. SKIN: Denies pruitis. Denies rash. PHYSICAL EXAM: VITAL SIGNS: Reviewed GENERAL: Well-developed in no acute distress. HEENT: No sclera icterus. Extraocular movements grossly intact. Moist buccal mucosa. Head is atraumatic, normocephalic. No nasal drainage. ABDOMEN: soft nontender nondistended NEUROLOGIC: awake. Pleasantly confused SKIN: Right gluteal ulcer with slough and darker nonviable tissue. Foul odor. Mild erythema. Left gluteal area smaller ulceration with slough off and nonviable tissue LABORATORY DATA: WBC 7.6 Hgb 10.0 platelets 309 Sodium 137 potassium is 3.7 creatinine 0.31 Glucose 98 CRP 17.6 IMAGING: ASSESSMENT: 1. Large right gluteal ulcer 2. Smaller left gluteal ulcer 3. Dementia PLAN: -Further recommendations forthcoming per surgeon -Continue local wound care -Continue antibiotics per infectious disease -Continue offloading -Continue regular diet Physician Chronic Disease Manager note has been reviewed by physician. Signing provider agrees with the documented findings, assessment, and plan of care. Past Medical History Past Medical History: Dementia, Thyroid Disorder Additional Past Medical History / Comment(s): "Recent UTI, finished antibiotics today." History of Any Multi-Drug Resistant Organisms: None Reported Past Surgical History: Bladder Surgery Additional Past Surgical History / Comment(s): Bladder lift, nasal surgery, foot surgery. Past Anesthesia/Blood Transfusion Reactions: No Reported Reaction, Motion Sickness Additional Past Anesthesia/Blood Transfusion Reaction / Comm: "WORK UP DURING SURGERY WITH FOOT SURGERY" Past Psychological History: Anxiety, Bipolar Smoking Status: Former smoker, Unknown if ever smoked Past Alcohol Use History: None Reported Past Drug Use History: None Reported - Past Family History Father Family Medical History: Cancer Sister(s) Family Medical History: Cancer Medications and Allergies Home Medications Medication Instructions Recorded Confirmed Type Acetaminophen [Tylenol Arthritis] 650 mg PO DAILY@0700 08/22/21 06/20/23 History Acetaminophen [Tylenol Arthritis] 650 mg PO Q8H PRN 08/22/21 06/20/23 History Cholecalciferol [Vitamin D3 (125 125 mcg PO DAILY@0700 08/22/21 06/20/23 History Mcg = 5000 Iu)] LORazepam [Ativan] 1 mg PO TID PRN 08/22/21 06/20/23 History Levothyroxine Sodium [Synthroid] 25 mcg PO DAILY@0700 08/22/21 06/20/23 History Memantine [Namenda] 10 mg PO BID@0700,1900 08/22/21 06/20/23 History Nystatin 100,000Unit/gm Cream 1 applic TOPICAL BID PRN 08/22/21 06/20/23 History [Mycostatin Cream] Magnesium Hydroxide [Milk of 2,400 mg PO DAILY PRN 10/05/21 06/20/23 History Magnesia] Escitalopram [Lexapro] 20 mg PO DAILY@0700 02/13/22 06/20/23 History Amoxic-Pot Clav 500-125 mg 1 tab PO TID@0600,1400,2200 06/20/23 06/20/23 History [Augmentin 500-125 mg] Folic Acid 0.4 mg PO DAILY@0700 06/20/23 06/20/23 History Sennosides/Docusate Sodium [Senna 2 tab PO HS@1900 06/20/23 06/20/23 History Plus 8.6-50 mg Tablet] Tobramycin 0.3% Ophth Soln [Tobrex 1 drop BOTH EYES Q4HR 06/20/23 06/20/23 History 0.3% Ophth Soln] traMADol HCL 50 mg PO TID@06,14,20 PRN 06/20/23 06/20/23 History Allergies Allergy/AdvReac Type Severity Reaction Status Date / Time seasonal Allergy Severe Dyspnea Uncoded 06/20/23 18:02 Surgical - Exam Vital Signs Temp Pulse Resp BP Pulse Ox 98 F 97 18 106/67 96 06/20/23 17:23 06/20/23 17:23 06/20/23 17:23 06/20/23 17:23 06/20/23 17:23 Results - Labs 06/21/23 07:45 06/21/23 07:45 Abnormal Lab Results - Last 24 Hours (Table) 06/20/23 06/20/23 06/21/23 Range/Units 18:32 18:32 07:45 RBC 3.40 L 3.07 L (3.80-5.40) m/uL Hgb 11.1 L 10.0 L (11.4-16.0) gm/dL Hct 33.5 L 30.5 L (34.0-46.0) % Lymphocytes # 0.6 L 0.8 L (1.0-4.8) k/uL ESR 78 H (0-30) mm/Hr Sodium 133 L (137-145) mmol/L BUN 24 H (7-17) mg/dL Creatinine 0.36 L (0.52-1.04) mg/dL AST 39 H (14-36) U/L C-Reactive Protein 17.6 H (<1.0) mg/dL Total Protein 6.0 L (6.3-8.2) g/dL Albumin 2.9 L (3.5-5.0) g/dL 06/21/23 Range/Units 07:45 RBC (3.80-5.40) m/uL Hgb (11.4-16.0) gm/dL Hct (34.0-46.0) % Lymphocytes # (1.0-4.8) k/uL ESR (0-30) mm/Hr Sodium (137-145) mmol/L BUN (7-17) mg/dL Creatinine 0.31 L (0.52-1.04) mg/dL AST (14-36) U/L C-Reactive Protein (<1.0) mg/dL Total Protein (6.3-8.2) g/dL Albumin (3.5-5.0) g/dL Diabetes panel 06/20/23 06/21/23 Range/Units 18:32 07:45 Sodium 133 L 137 (137-145) mmol/L Potassium 4.6 3.7 (3.5-5.1) mmol/L Chloride 100 101 (98-107) mmol/L Carbon Dioxide 25 25 (22-30) mmol/L BUN 24 H 17 (7-17) mg/dL Creatinine 0.36 L 0.31 L (0.52-1.04) mg/dL Glucose 98 98 (74-99) mg/dL Calcium 8.8 8.7 (8.4-10.2) mg/dL AST 39 H (14-36) U/L ALT 24 (4-34) U/L Alkaline Phosphatase 73 (38-126) U/L Total Protein 6.0 L (6.3-8.2) g/dL Albumin 2.9 L (3.5-5.0) g/dL Calcium panel 06/20/23 06/21/23 Range/Units 18:32 07:45 Calcium 8.8 8.7 (8.4-10.2) mg/dL Albumin 2.9 L (3.5-5.0) g/dL Pituitary panel 06/20/23 06/21/23 Range/Units 18:32 07:45 Sodium 133 L 137 (137-145) mmol/L Potassium 4.6 3.7 (3.5-5.1) mmol/L Chloride 100 101 (98-107) mmol/L Carbon Dioxide 25 25 (22-30) mmol/L BUN 24 H 17 (7-17) mg/dL Creatinine 0.36 L 0.31 L (0.52-1.04) mg/dL Glucose 98 98 (74-99) mg/dL Calcium 8.8 8.7 (8.4-10.2) mg/dL Adrenal panel 06/20/23 06/21/23 Range/Units 18:32 07:45 Sodium 133 L 137 (137-145) mmol/L Potassium 4.6 3.7 (3.5-5.1) mmol/L Chloride 100 101 (98-107) mmol/L Carbon Dioxide 25 25 (22-30) mmol/L BUN 24 H 17 (7-17) mg/dL Creatinine 0.36 L 0.31 L (0.52-1.04) mg/dL Glucose 98 98 (74-99) mg/dL Calcium 8.8 8.7 (8.4-10.2) mg/dL Total Bilirubin 0.7 (0.2-1.3) mg/dL AST 39 H (14-36) U/L ALT 24 (4-34) U/L Alkaline Phosphatase 73 (38-126) U/L Total Protein 6.0 L (6.3-8.2) g/dL Albumin 2.9 L (3.5-5.0) g/dL
[2023-06-21 18:16] LABS: Appearance,Urine Turbid (Clear); Bilirubin,Urine Negative (Negative); Blood,Urine Large (Negative); Color,Urine Yellow; Glucose,Urine (UA) Negative (Negative); Ketones,Urine Negative (Negative); Leukocyte Esterase,Urine Large (Negative); Mucus,Urine Many /hpf; Nitrite,Urine Negative (Negative); Protein,Urine 1+ (Negative); RBC,Urine >182 /hpf (0-5); Specific Gravity,Urine 1.022 (1.001-1.035); Squamous Epithelial Cell,Urine 3 /hpf (0-4); Urobilinogen,Urine <2.0 mg/dL (<2.0); WBC,Urine >182 /hpf (0-5)
[2023-06-21] MEDS: SENNOSIDES-DOCUSATE SODIUM 1 EACH TAB PO SCH (20:26)
--- NOTE | 2023-06-21 22:29 | P.CONS ---
History of Present Illness - Reason for Consult Consult date: 06/21/23 Sacral ulcer Requesting physician: Lei Johns - Chief Complaint Worsening wound to the sacral area x days - History of Present Illness -patient is a 72-year-old female with a past medical history significant for dementia history of recurrent UTI hypothyroidism resident of the [facility] home the patient has been brought into the hospital as apparently the patient has developed pressure ulcer to the right gluteal area and small ulcer to the left gluteal area that apparently has been getting worse for the last 1 week and did have some worsening swelling redness and foul-smelling drainage patient was unable to provide any history most information has been provided by the daughter at the bedside there was no history of any fever at the adult [facility] and no fever have been recorded on presentation to the hospital patient was not tachycardic mildly hypertensive but not hypoxic patient did have white count of 7.6 with creatinine 0.36 liver enzymes are normal CRP is elevated urine was positive patient was started on Unasyn and vancomycin infectious disease was consulted for further management of antibiotic therapy most information has been obtained from talking to the daughter at the bedside the patient herself was not required any history Review of Systems Positive points has been mentioned in HPI complete review could not be obtained because of his underlying mental status Past Medical History Past Medical History: Dementia, Thyroid Disorder Additional Past Medical History / Comment(s): "Recent UTI, finished antibiotics today." History of Any Multi-Drug Resistant Organisms: None Reported Past Surgical History: Bladder Surgery Additional Past Surgical History / Comment(s): Bladder lift, nasal surgery, foot surgery. Past Anesthesia/Blood Transfusion Reactions: No Reported Reaction, Motion Sickness Additional Past Anesthesia/Blood Transfusion Reaction / Comm: "WORK UP DURING SURGERY WITH FOOT SURGERY" Past Psychological History: Anxiety, Bipolar Smoking Status: Former smoker, Unknown if ever smoked Past Alcohol Use History: None Reported Past Drug Use History: None Reported - Past Family History Father Family Medical History: Cancer Sister(s) Family Medical History: Cancer Medications and Allergies Home Medications Medication Instructions Recorded Confirmed Type Acetaminophen [Tylenol Arthritis] 650 mg PO DAILY@0700 08/22/21 06/20/23 History Acetaminophen [Tylenol Arthritis] 650 mg PO Q8H PRN 08/22/21 06/20/23 History Cholecalciferol [Vitamin D3 (125 125 mcg PO DAILY@0700 08/22/21 06/20/23 History Mcg = 5000 Iu)] LORazepam [Ativan] 1 mg PO TID PRN 08/22/21 06/20/23 History Levothyroxine Sodium [Synthroid] 25 mcg PO DAILY@0700 08/22/21 06/20/23 History Memantine [Namenda] 10 mg PO BID@0700,1900 08/22/21 06/20/23 History Nystatin 100,000Unit/gm Cream 1 applic TOPICAL BID PRN 08/22/21 06/20/23 History [Mycostatin Cream] Magnesium Hydroxide [Milk of 2,400 mg PO DAILY PRN 10/05/21 06/20/23 History Magnesia] Escitalopram [Lexapro] 20 mg PO DAILY@0700 02/13/22 06/20/23 History Folic Acid 0.4 mg PO DAILY@0700 06/20/23 06/20/23 History Sennosides/Docusate Sodium [Senna 2 tab PO HS@1900 06/20/23 06/20/23 History Plus 8.6-50 mg Tablet] Tobramycin 0.3% Ophth Soln [Tobrex 1 drop BOTH EYES Q4HR 06/20/23 06/20/23 History 0.3% Ophth Soln] traMADol HCL 50 mg PO TID@06,14,20 PRN 06/20/23 06/20/23 History Cefepime [Maxipime] 2 gm IVPB Q8H #120 each 06/28/23 Rx metroNIDAZOLE [Flagyl] 500 mg PO TID #90 tab 06/28/23 Rx Allergies Allergy/AdvReac Type Severity Reaction Status Date / Time seasonal Allergy Severe Dyspnea Uncoded 06/20/23 18:02 Physical Exam Vitals: Vital Signs Temp Pulse Resp BP Pulse Ox 06/21/23 10:44 81 106/58 06/21/23 10:33 97.6 F 85 18 82/59 95 06/21/23 06:46 97.6 F 81 20 100/73 95 06/21/23 04:45 97.6 F 80 18 92/55 95 06/21/23 03:30 76 12 100/58 95 06/20/23 22:30 98 12 100/58 95 06/20/23 22:27 99 18 100/58 95 06/20/23 20:30 92 14 95/49 96 06/20/23 20:14 93 18 95/49 97 06/20/23 20:10 96 12 106/67 96 06/20/23 17:23 98 F 97 18 10667 96 Intake and Output 06/20/23 06/21/23 06/21/23 22:59 06:59 14:59 Other: Weight 63.503 kg GENERAL DESCRIPTION: Elderly female lying in bed, no distress. No tachypnea or accessory muscle of respiration use. HEENT: Shows Pallor , no scleral icterus. Oral mucous membrane is dry. NECK: Trachea central, no thyromegaly. LUNGS: Unlabored breathing. Decreased breath sound the base HEART: S1, S2, regular rate and rhythm. No loud murmur ABDOMEN: Soft, no tenderness , guarding or rigidity, no organomegaly EXTREMITIES: No edema feet SKIN: Patient did have unstageable sacral pressure ulcer with necrotic changes surrounding swelling redness and some foul-smelling NEUROLOGICAL: The patient is awake but nonverbal orientation cannot be determined Results CBC & Chem 7: 06/21/23 07:45 06/25/23 08:28 Labs: Abnormal Lab Results - Last 24 Hours (Table) 06/20/23 06/20/23 06/21/23 Range/Units 18:32 18:32 07:45 RBC 3.40 L 3.07 L (3.80-5.40) m/uL Hgb 11.1 L 10.0 L (11.4-16.0) gm/dL Hct 33.5 L 30.5 L (34.0-46.0) % Lymphocytes # 0.6 L 0.8 L (1.0-4.8) k/uL ESR 78 H (0-30) mm/Hr Sodium 133 L (137-145) mmol/L BUN 24 H (7-17) mg/dL Creatinine 0.36 L (0.52-1.04) mg/dL AST 39 H (14-36) U/L C-Reactive Protein 17.6 H (<1.0) mg/dL Total Protein 6.0 L (6.3-8.2) g/dL Albumin 2.9 L (3.5-5.0) g/dL 06/21/23 Range/Units 07:45 RBC (3.80-5.40) m/uL Hgb (11.4-16.0) gm/dL Hct (34.0-46.0) % Lymphocytes # (1.0-4.8) k/uL ESR (0-30) mm/Hr Sodium (137-145) mmol/L BUN (7-17) mg/dL Creatinine 0.31 L (0.52-1.04) mg/dL AST (14-36) U/L C-Reactive Protein (<1.0) mg/dL Total Protein (6.3-8.2) g/dL Albumin (3.5-5.0) g/dL Assessment and Plan (1) Infected pressure ulcer Status: Acute Code(s): L89.90 - PRESSURE ULCER OF UNSPECIFIED SITE, UNSPECIFIED STAGE; L08.9 - LOCAL INFECTION OF THE SKIN AND SUBCUTANEOUS TISSUE, UNSP SNOMED Code(s): 416222823 (2) Sacral wound Status: Acute Code(s): S31.000A - UNSP OPN WND LOW BACK AND PELV W/O PENET RETROPERITON, INIT SNOMED Code(s): 401446391 (3) Unstageable pressure ulcer of buttock Status: Acute Code(s): L89.300 - PRESSURE ULCER OF UNSPECIFIED BUTTOCK, UNSTAGEABLE SNOMED Code(s): 26174684781375951 Plan: 1-patient presented to hospital with worsening wound to the right gluteal area with unstageable pressure ulcer with significant necrotic tissue and surrounding redness and foul-smelling drainage reviewed need to cover for both gram- positive as well as gram-negative pathogen 2-General surgery evaluation for debridement and deep cultures 3-continue with the vancomycin pharmacy to dose while watching her kidney function closely and Unasyn till the workup is completed 4-local wound care per the wound care team Daughter at the bedside questions were answered We will follow on clinical condition and cultures to further adjust medication if needed Thank you for this consultation we will follow the patient along with you Dictation was produced using [employer] dictation software. please excuse any grammatical, word or spelling Time with Patient: Greater than 30
[2023-06-22] MEDS: TOBRAMYCIN 0.3% OPHTH DROPS 5 ML BTL BOTH EYES SCH ×6 (00:10→20:17)
[2023-06-22] MEDS: ZINC OXIDE PASTE (Z-GUARD) 1 APPLIC TOPICAL SCH ×2 (00:29→09:08)
[2023-06-22] MEDS: AMPICILLIN-SULBACTAM 3 GM in SODIUM CHLORIDE 0.9% 100 ML IVPB SCH ×3 (05:47→22:56)
[2023-06-22] MEDS: CHOLECALCIFEROL 125 MCG (5000 IU) TABLET PO SCH (09:07)
[2023-06-22] MEDS: ESCITALOPRAM 20 MG TAB PO SCH (09:07)
[2023-06-22] MEDS: MEMANTINE 10 MG TAB PO SCH ×2 (09:07→20:17)
[2023-06-22] MEDS: VANCOMYCIN 1,250 MG in SODIUM CHLORIDE 0.9% 250 ML IVPB SCH ×2 (09:08→21:53)
[2023-06-22] MEDS: LEVOTHYROXINE 25 MCG TAB PO SCH (09:08)
[2023-06-22] MEDS: ENOXAPARIN 40 MG/0.4 ML SYRINGE SQ SCH (09:08)
--- NOTE | 2023-06-22 11:58 | P.PN ---
Progress Note - Text CHIEF COMPLAINT: Gluteal ulcer HISTORY OF PRESENT ILLNESS: This is a 72-year-old female with advanced dementia and bedbound. She presents the hospital with evidence of a large right gluteal ulcer and small left gluteal ulcer. She resides at an [facility] home. Daughter is at bedside and reports that they've started to noticed the sore on last last week. They tried local wound care and antibiotics with no improvement. There is foul odor. Patient reports pain in the area. She has no history of diabetes. PAST MEDICAL HISTORY: See below PAST SURGICAL HISTORY: See below MEDICATIONS: See below ALLERGIES: See below SOCIAL HISTORY: No illicit drug use. REVIEW OF SYSTEMS: CONSTITUTIONAL: Denies fever or chills. HEENT: Denies blurred vision, vision changes, or eye pain. Denies hemoptysis CARDIOVASCULAR: Denies chest pain or pressure. RESPIRATORY: No shortness of breath. GASTROINTESTINAL: See HPI for pertinent findings HEMATOLOGIC: Denies bleeding disorders. GENITOURINARY: Denies any blood in urine or increased urinary frequency. SKIN: Denies pruitis. Denies rash. PHYSICAL EXAM: VITAL SIGNS: Reviewed GENERAL: Well-developed in no acute distress. HEENT: No sclera icterus. Extraocular movements grossly intact. Moist buccal mucosa. Head is atraumatic, normocephalic. No nasal drainage. ABDOMEN: soft nontender nondistended NEUROLOGIC: awake. Pleasantly confused SKIN: Right gluteal ulcer with slough and darker nonviable tissue. Foul odor. Mild erythema. Left gluteal area smaller ulceration with slough off and nonviable tissue LABORATORY DATA: WBC 7.6 Hgb 10.0 platelets 309 Sodium 137 potassium is 3.7 creatinine 0.31 Glucose 98 CRP 17.6 IMAGING: ASSESSMENT: 1. Large right gluteal ulcer 2. Smaller left gluteal ulcer 3. Dementia PLAN: Operative debridement on 1224 -Continue local wound care -Continue antibiotics per infectious disease -Continue offloading -Continue regular diet
[2023-06-22] MEDS: SODIUM CHLORIDE 0.9% 1,000 ML IV SCH (13:07)
[2023-06-22] MEDS ORDERED: VANCOMYCIN TROUGH DUE 1 EACH MISC MISCELLANE ONE (20:00)
[2023-06-22] MEDS: SENNOSIDES-DOCUSATE SODIUM 1 EACH TAB PO SCH (20:17)
[2023-06-23] MEDS: TOBRAMYCIN 0.3% OPHTH DROPS 5 ML BTL BOTH EYES SCH ×6 (02:09→21:11)
[2023-06-23] MEDS: SODIUM CHLORIDE 0.9% 1,000 ML IV SCH ×2 (05:09→17:46)
[2023-06-23] MEDS: AMPICILLIN-SULBACTAM 3 GM in SODIUM CHLORIDE 0.9% 100 ML IVPB SCH ×3 (06:28→21:18)
[2023-06-23 06:59] LABS: African American GFR (CKD) >90 (>60 ml/min/1.73 sqM); Non-African American GFR(CKD) >90 (>60 ml/min/1.73 sqM)
[2023-06-23] MEDS: VANCOMYCIN 1,250 MG in SODIUM CHLORIDE 0.9% 250 ML IVPB SCH ×2 (09:08→21:10)
[2023-06-23] MEDS: MEMANTINE 10 MG TAB PO SCH ×2 (09:09→17:48)
[2023-06-23] MEDS: ESCITALOPRAM 20 MG TAB PO SCH (09:09)
[2023-06-23] MEDS: CHOLECALCIFEROL 125 MCG (5000 IU) TABLET PO SCH (09:09)
[2023-06-23] MEDS: ENOXAPARIN 40 MG/0.4 ML SYRINGE SQ SCH (09:09)
[2023-06-23] MEDS: LEVOTHYROXINE 25 MCG TAB PO SCH (09:09)
[2023-06-23] MEDS: ZINC OXIDE PASTE (Z-GUARD) 1 APPLIC TOPICAL SCH (09:10)
--- NOTE | 2023-06-23 09:43 | P.PN ---
Progress Note - Text Progress Note Date: 06/22/23 Patient is a 72-year-old female with a PMH of dementia and hypothyroidism who was brought into the emergency room from [facility] home for a sacral ulcer. History obtained from the chart as the patient was not answering any questions which is baseline for her. Attempted to contact the patient's family at the number listed in the chart with no response. The patient had reportedly developed a sacral ulcer which was noticed last week and that she was started on Augmentin on the along with local wound care. The wound however became foul smelling and the patient was sent to the emergency room for further care. EKG in emergency room revealed sinus rhythm at 86 bpm with poor baseline as revi ewed by me. Laboratory evaluation was remarkable for hemoglobin of 11.1, ESR 78, sodium 133, BUN 24, creatinine 0.36, CRP 17.6, albumin 2.9. ED documentation reviewed and case discussed with ED provider. 06/22/2023: I assumed care of the patient today. Reclining in bed. It is feeding the patient. Oral intake decreased. Denies any pain. We will answer occasional question. Otherwise appears comfortable. Current medications reviewed Past Medical History Past Medical History: Dementia, Thyroid Disorder Additional Past Medical History / Comment(s): "Recent UTI, finished antibiotics today." History of Any Multi-Drug Resistant Organisms: None Reported Past Surgical History: Bladder Surgery Additional Past Surgical History / Comment(s): Bladder lift, nasal surgery, foot surgery. Past Anesthesia/Blood Transfusion Reactions: No Reported Reaction, Motion Sickness Additional Past Anesthesia/Blood Transfusion Reaction / Comment(s): "WORK UP DURING SURGERY WITH FOOT SURGERY" Past Psychological History: Anxiety, Bipolar Smoking Status: Former smoker, Unknown if ever smoked Past Alcohol Use History: None Reported Past Drug Use History: None Reported - Past Family History Father Family Medical History: Cancer Sister(s) Family Medical History: Cancer On examination: VITAL SIGNS: [98, 74, 16, 89/45, 97% on 2 L] GENERAL APPEARANCE: Thin built, reclining in bed awake but in distress. Loss of muscle mass. HEENT: Normal external appearance of nose and ear. Oral cavity normal EYES: Pupils equal. Conjunctiva normal. NECK: JVD not raised. Mass not palpable. RESPIRATORY: Respiratory effort normal. Lungs clear to auscultation. CARDIOVASCULAR: First and second sounds normal. No edema. ABDOMEN: Soft. Liver and spleen not palpable. No tenderness. No mass palpable. PSYCHIATRY: Looking at. We'll answer occasional question. MUSCULAR skeletal: OA INVESTIGATIONS, reviewed in the clinical context: June 21: Consent 0.6 hemoglobin 10 platelets 309 sodium 137 potassium 3.7 creatinine 0.31 Albumin 2.9 Assessment and plan: -Large sacral ulcer, failed outpatient treatment Local wound care. Follow with surgical team. IV vancomycin and Unasyn -Hypothyroidism, Synthroid 25 g -Severe cognitive impairment due to late onset Alzheimer's dementia -Severe protein calorie malnutrition from decreased oral intake Encourage oral intake. Ensure. -Bipolar/anxiety Lexapro 20 mg a day -Primary osteoarthritis Tylenol as needed -DO NOT RESUSCITATE Discussed with the nurse aide. Encourage Ensure.
[2023-06-23] MEDS: HYDROcodone/APAP 5-325MG 1 EACH TAB PO PRN (10:32)
--- NOTE | 2023-06-23 11:07 | P.PN ---
Subjective Progress Note Date: 06/22/23 Principal diagnosis: Reason for follow-up is infected pressure ulcer patient is a 72-year-old female with a past medical history significant for dementia history of recurrent UTI hypothyroidism resident of the [facility] home the patient has been brought into the hospital concerning for worsening wound to the right gluteal area concerning for infected pressure ulcer and ezio lulitis. On today's evaluation that is 06/22/2023 the patient remains to be afebrile the patient is breathing comfortably on the 2 L nasal cannula oxygen the patient remains to be nonverbal but in no distress no vomiting diarrhea or any other changes reported by the daughter at the bedside Patient did have a white count of 7.6 creatinine 0.31 as of yesterday Objective - Vital Signs Vital signs: Vital Signs Temp 98.0 F 06/22/23 08:00 Pulse 66 06/22/23 08:00 Resp 16 06/22/23 08:00 BP 86/41 06/22/23 08:00 Pulse Ox 93 L 06/22/23 10:02 FiO2 Intake & Output 06/21/23 06/22/23 06/22/23 18:59 06:59 18:59 Intake Total 350 Output Total 600 600 Balance -600 -250 Weight 63.503 kg Intake: Intake, IV Titration 100 Amount Ampicillin-Sulbactam 3 gm 100 In Sodium Chloride 0.9% 100 ml @ 200 mls/hr IVPB Q8H [facility] Rx#:[id number] Oral 250 Output: Urine 600 600 Other: Voiding Method Indwelling Catheter Indwelling Catheter # Bowel Movements 1 - Exam GENERAL DESCRIPTION: An elderly female lying in bed in no distress RESPIRATORY SYSTEM: Unlabored breathing , decreased breath sounds at bases HEART: S1 S2 regular rate and rhythm , ABDOMEN: Soft , no tenderness EXTREMITIES: No edema feet - Labs CBC & Chem 7: 06/21/23 07:45 06/23/23 06:20 Labs: Abnormal Lab Results - Last 24 Hours (Table) 06/21/23 Range/Units 17:38 Urine Appearance Turbid H (Clear) Urine Protein 1+ H (Negative) Urine Blood Large H (Negative) Ur Leukocyte Esterase Large H (Negative) Urine RBC >182 H (0-5) /hpf Urine WBC >182 H (0-5) /hpf Urine WBC Clumps Occasional H (None) /hpf Urine Mucus Many H (None) /hpf Microbiology - Last 24 Hours (Table) 06/20/23 21:40 Blood Culture - Preliminary Blood Assessment and Plan (1) Unstageable pressure ulcer of buttock Current Visit: Yes Status: Acute Code(s): L89.300 - PRESSURE ULCER OF UNSP ECIFIED BUTTOCK, UNSTAGEABLE SNOMED Code(s): 55719872626403045 (2) Infected pressure ulcer Current Visit: Yes Status: Acute Code(s): L89.90 - PRESSURE ULCER OF UNSPECIFIED SITE, UNSPECIFIED STAGE; L08.9 - LOCAL INFECTION OF THE SKIN AND SUBCUTANEOUS TISSUE, UNSP SNOMED Code(s): 012858870 Plan: 1-patient presented to hospital with worsening wound to the right gluteal area with unstageable pressure ulcer with significant necrotic tissue and surrounding redness and foul-smelling drainage reviewed need to cover for both gram-positive as well as gram-negative pathogen 2patient has been eval by surgery planning for debridement of the infected ulcer and culture scheduled for tomorrow 3patient to continue with the vancomycin and Unasyn and monitor clinical course closely Daughter at the bedside questions were answered Dictation was produced using [employer] software. please excuse any grammatical, word or spelling
--- NOTE | 2023-06-23 11:09 | P.PN ---
Subjective Progress Note Date: 06/23/23 Principal diagnosis: Reason for follow-up is infected pressure ulcer patient is a 72-year-old female with a past medical history significant for dementia history of recurrent UTI hypothyroidism resident of the [facility] home the patient has been brought into the hospital concerning for worsening wound to the right gluteal area concerning for infected pressure ulcer and ezio lulitis. On today's evaluation that is 06/23/2023 the patient continues to be afebrile the patient is breathing comfortably on the 2 L nasal cannula oxygen the patient did not answer any question not a good historian though does not seem to be any distress no vomiting or diarrhea reported by the nursing staff Patient did have a white count of 7.6 as of 06/21/2023 creatinine is 0.29 this morning Objective - Vital Signs Vital signs: Vital Signs Temp 97.6 F 06/23/23 07:42 Pulse 67 06/23/23 07:42 Resp 17 06/23/23 07:42 BP 91/49 06/23/23 07:42 Pulse Ox 93 L 06/23/23 08:44 FiO2 Intake & Output 06/22/23 06/23/23 06/23/23 18:59 06:59 18:59 Output Total 650 450 Balance -650 -450 Output: Urine 650 450 Other: Voiding Method Indwelling Catheter Indwelling Catheter # Bowel Movements 1 1 1 - Exam GENERAL DESCRIPTION: An elderly female lying in bed in no distress RESPIRATORY SYSTEM: Unlabored breathing , decreased breath sounds at bases HEART: S1 S2 regular rate and rhythm , ABDOMEN: Soft , no tenderness EXTREMITIES: No edema feet - Labs CBC & Chem 7: 06/21/23 07:45 06/23/23 06:20 Labs: Abnormal Lab Results - Last 24 Hours (Table) 06/23/23 Range/Units 06:20 Creatinine 0.29 L (0.52-1.04) mg/dL Microbiology - Last 24 Hours (Table) 06/21/23 17:38 Urine Culture - Final Urine,Voided 06/20/23 21:40 Blood Culture - Preliminary Blood Assessment and Plan (1) Infected pressure ulcer Current Visit: Yes Status: Acute Code(s): L89.90 - PRESSURE ULCER OF UNSPECIFIED SITE, UNSPECIFIED STAGE; L08.9 - LOCAL INFECTION OF THE SKIN AND SUBCUTANEOUS TISSUE, UNSP SNOMED Code(s): 323710972 (2) Unstageable pressure ulcer of buttock Current Visit: Yes Status: Acute Code(s): L89.300 - PRESSURE ULCER OF UNSPECIFIED BUTTOCK, UNSTAGEABLE SNOMED Code(s): 18555745602024259 Plan: 1-patient presented to hospital with worsening wound to the right gluteal area with unstageable pressure ulcer with significant necrotic tissue and surrounding redness and foul-smelling drainage reviewed need to cover for both gram-positive as well as gram-negative pathogen 2patient has been evaluated by general surgery planning for debridement of the infected ulcer and culture scheduled for possible this afternoon 3patient to continue with the vancomycin and Unasyn and monitor clinical course closely, the patient creatinine remains to be stable Dictation was produced using [employer] dictation software. please excuse any grammatical, word or spelling
--- NOTE | 2023-06-23 12:36 | P.PN ---
Subjective Progress Note Date: 06/23/23 CHIEF COMPLAINT: Sacral ulcer HISTORY OF PRESENT ILLNESS: The patient is a 72-year-old female presents with an ulcer. Family at bedside gives additional history that patient has been bed bound over 2 years and has her first sacral ulcer that developed in the last 2 weeks. Patient seen by infectious disease and wound care team. Family also reports unintentional weight loss. Patient has dementia and has been less responsive. ROS: No reports of nausea and vomiting. No bowel movements. No fevers or chills. No new chest pain. No productive sputum PHYSICAL EXAM: VITAL SIGNS: Reviewed CONSTITUTIONAL: Well developed and in no acute distress. EYES: Conjuctivae without sclera icterus. Extraocular movements grossly intact. HEAD, EARS, NOSE, THROAT: Moist buccal mucosa. Head is atraumatic, no rmocephalic. Hears conversational speech. No nasal drainage. RESPIRATORY: Non-labored respirations and equal bilateral excursions. CARDIOVASCULAR: Palpable 2+ radial pulses. ABDOMEN: Scaphoid. MUSCULOSKELETAL: No gross deformity of the lower extremities noted. No clubbing. No cyanosis. SKIN: Good skin turgor. Well perfused. NEUROLOGIC: Cranial nerves II through XII grossly intact. No focal or lateralizing signs. PSYCH: Flat affect. CLINICAL LABS: Reviewed. WBC normal. ASSESSMENT: 1. Sacral ulcer PLAN: 1. Plan for augment nutrition. 2. Debridement tomorrow when NPO after midnight. 3. Care plan reviewed with family and patient. Objective - Vital Signs Vital signs: Vital Signs Temp 98.4 F 06/23/23 11:53 Pulse 66 06/23/23 11:53 Resp 16 06/23/23 11:53 BP 93/52 06/23/23 11:53 Pulse Ox 97 06/23/23 11:53 FiO2 Intake & Output 06/22/23 06/23/23 06/23/23 18:59 06:59 18:59 Output Total 650 450 Balance -650 -450 Output: Urine 650 450 Other: Voiding Method Indwelling Catheter Indwelling Catheter # Bowel Movements 1 1 1 - Labs CBC & Chem 7: 06/21/23 07:45 06/23/23 06:20 Labs: Abnormal Lab Results - Last 24 Hours (Table) 06/23/23 Range/Units 06:20 Creatinine 0.29 L (0.52-1.04) mg/dL Microbiology - Last 24 Hours (Table) 06/21/23 17:38 Urine Culture - Final Urine,Voided 06/20/23 21:40 Blood Culture - Preliminary Blood
--- NOTE | 2023-06-23 13:15 | P.PN ---
Progress Note - Text Progress Note Date: 06/23/23 Patient is a 72-year-old female with a PMH of dementia and hypothyroidism who was brought into the emergency room from [facility] home for a sacral ulcer. History obtained from the chart as the patient was not answering any questions which is baseline for her. Attempted to contact the patient's family at the number listed in the chart with no response. The patient had reportedly developed a sacral ulcer which was noticed last week and that she was started on Augmentin on the along with local wound care. The wound however became foul smelling and the patient was sent to the emergency room for further care. EKG in emergency room revealed sinus rhythm at 86 bpm with poor baseline as revi ewed by me. Laboratory evaluation was remarkable for hemoglobin of 11.1, ESR 78, sodium 133, BUN 24, creatinine 0.36, CRP 17.6, albumin 2.9. ED documentation reviewed and case discussed with ED provider. 06/22/2023: I assumed care of the patient today. Reclining in bed. It is feeding the patient. Oral intake decreased. Denies any pain. We will answer occasional question. Otherwise appears comfortable. 06/23/2023: Patient eating some with assistance. We'll speak occasional word example hello no etc. Appears comfortable. Surgery Dr. Holman in planning for debridement tomorrow. Active Medications Hydrocodone Bitart/Acetaminophen (Hydrocodone/Apap 5-325mg 1 Each Tab) 1 each PO Q4HR PRN PRN Reason: Moderate Pain (Scale 4 to 6) Last Admin: 06/23/23 10:32 Dose: 1 each Cholecalciferol (Cholecalciferol 125 Mcg (5000 Iu) Tablet) 125 mcg PO DAILY@0700 [facility] Last Admin: 06/23/23 09:09 Dose: 125 mcg Enoxaparin Sodium (Enoxaparin 40 Mg/0.4 Ml Syringe) 40 mg SQ DAILY [facility] Last Admin: 06/23/23 09:09 Dose: 40 mg Escitalopram Oxalate (Escitalopram 20 Mg Tab) 20 mg PO DAILY@0700 [facility] Last Admin: 06/23/23 09:09 Dose: 20 mg Sodium Chloride (Saline 0.9%) 1,000 mls @ 75 mls/hr IV .[id number] [facility] Last Admin: 06/23/23 05:09 Dose: 75 mls/hr Vancomycin HCl 1,250 mg/ (Sodium Chloride) 250 mls @ 125 mls/hr IVPB Q12H [facility] Last Admin: 06/23/23 09:08 Dose: 125 mls/hr Ampicillin Sodium/Sulbactam (Sodium 3 gm/ Sodium Chloride) 100 mls @ 200 mls/hr IVPB Q8H [facility]; Protocol Last Admin: 06/23/23 06:28 Dose: 200 mls/hr Levothyroxine Sodium (Levothyroxine 25 Mcg Tab) 25 mcg PO DAILY@0700 [facility] Last Admin: 06/23/23 09:09 Dose: 25 mcg Lorazepam (Lorazepam 1 Mg Tab) 1 mg PO TID PRN PRN Reason: Agitation Memantine (Memantine 10 Mg Tab) 10 mg PO BID@0700,1900 [facility] Last Admin: 06/23/23 09:09 Dose: 10 mg Naloxone HCl (Naloxone 0.4 Mg/Ml 1 Ml Vial) 0.2 mg IV Q2M PRN PRN Reason: Opioid Reversal Petrolatum (Zinc Oxide Paste (Z-Guard) 1 Applic Applic) 1 applic TOPICAL DAILY [facility] Last Admin: 06/23/23 09:10 Dose: 1 applic Senna/Docusate Sodium (Sennosides-Docusate Sodium 1 Each Tab) 2 each PO HS@1900 [facility] Last Admin: 06/22/23 20:17 Dose: Not Given Tobramycin (Tobramycin 0.3% Ophth Drops 5 Ml Btl) 1 drops BOTH EYES Q4HR [facility] Last Admin: 06/23/23 09:10 Dose: 1 drops Past Medical History Past Medical History: Dementia, Thyroid Disorder Additional Past Medical History / Comment(s): "Recent UTI, finished antibiotics today." History of Any Multi-Drug Resistant Organisms: None Reported Past Surgical History: Bladder Surgery Additional Past Surgical History / Comment(s): Bladder lift, nasal surgery, foot surgery. Past Anesthesia/Blood Transfusion Reactions: No Reported Reaction, Motion Sickness Additional Past Anesthesia/Blood Transfusion Reaction / Comment(s): "WORK UP DURING SURGERY WITH FOOT SURGERY" Past Psychological History: Anxiety, Bipolar Smoking Status: Former smoker, Unknown if ever smoked Past Alcohol Use History: None Reported Past Drug Use History: None Reported - Past Family History Father Family Medical History: Cancer Sister(s) Family Medical History: Cancer On examination: VITAL SIGNS: 98.4, 66, 16, 93/52, 97% on 2 L GENERAL APPEARANCE: Thin built, reclining in bed awake but in distress. Loss of muscle mass. HEENT: Normal external appearance of nose and ear. Oral cavity normal EYES: Pupils equal. Conjunctiva normal. NECK: JVD not raised. Mass not palpable. RESPIRATORY: Respiratory effort normal. Lungs clear to auscultation. CARDIOVASCULAR: First and second sounds normal. No edema. ABDOMEN: Soft. Liver and spleen not palpable. No tenderness. No mass palpable. PSYCHIATRY: Looking at. We'll answer occasional question. MUSCULAR skeletal: OA INVESTIGATIONS, reviewed in the clinical context: June 23: Creatinine 0.29 June 21: Consent 0.6 hemoglobin 10 platelets 309 sodium 137 potassium 3.7 creatinine 0.31 Albumin 2.9 Assessment and plan: -Large sacral ulcer, failed outpatient treatment Local wound care. Plan for surgical debridement tomorrow IV vancomycin and Unasyn -Hypothyroidism, Synthroid 25 g Check TSH -Severe cognitive impairment due to late onset Alzheimer's dementia -Severe protein calorie malnutrition from decreased oral intake Encourage oral intake. Ensure. -Bipolar/anxiety Lexapro 20 mg a day -Primary osteoarthritis Tylenol as needed -DO NOT RESUSCITATE Plan for debridement tomorrow. Check TSH. Patient may not need Synthroid. Other medications to continue
[2023-06-23 17:24] VITALS: BMI 25.6
[2023-06-23] MEDS: SENNOSIDES-DOCUSATE SODIUM 1 EACH TAB PO SCH (17:48)
[2023-06-24] MEDS: TOBRAMYCIN 0.3% OPHTH DROPS 5 ML BTL BOTH EYES SCH ×7 (00:30→23:34)
[2023-06-24] MEDS: AMPICILLIN-SULBACTAM 3 GM in SODIUM CHLORIDE 0.9% 100 ML IVPB SCH ×3 (05:17→22:14)
[2023-06-24] MEDS: SODIUM CHLORIDE 0.9% 1,000 ML IV SCH ×2 (05:20→18:55)
[2023-06-24 07:37] LABS: African American GFR (CKD) >90 (>60 ml/min/1.73 sqM); Non-African American GFR(CKD) >90 (>60 ml/min/1.73 sqM)
[2023-06-24] MEDS: VANCOMYCIN 1,250 MG in SODIUM CHLORIDE 0.9% 250 ML IVPB SCH ×2 (10:34→20:44)
[2023-06-24] MEDS: ZINC OXIDE PASTE (Z-GUARD) 1 APPLIC TOPICAL SCH (10:34)
[2023-06-24] MEDS: MEMANTINE 10 MG TAB PO SCH ×2 (11:20→20:45)
[2023-06-24] MEDS: LEVOTHYROXINE 25 MCG TAB PO SCH (11:20)
[2023-06-24] MEDS: ESCITALOPRAM 20 MG TAB PO SCH (11:20)
[2023-06-24] MEDS: CHOLECALCIFEROL 125 MCG (5000 IU) TABLET PO SCH (11:20)
--- NOTE | 2023-06-24 15:15 | P.PN ---
Progress Note - Text Progress Note Date: 06/24/23 Patient is a 72-year-old female with a PMH of dementia and hypothyroidism who was brought into the emergency room from [facility] home for a sacral ulcer. History obtained from the chart as the patient was not answering any questions which is baseline for her. Attempted to contact the patient's family at the number listed in the chart with no response. The patient had reportedly developed a sacral ulcer which was noticed last week and that she was started on Augmentin on the along with local wound care. The wound however became foul smelling and the patient was sent to the emergency room for further care. EKG in emergency room revealed sinus rhythm at 86 bpm with poor baseline as revi ewed by me. Laboratory evaluation was remarkable for hemoglobin of 11.1, ESR 78, sodium 133, BUN 24, creatinine 0.36, CRP 17.6, albumin 2.9. ED documentation reviewed and case discussed with ED provider. 06/22/2023: I assumed care of the patient today. Reclining in bed. It is feeding the patient. Oral intake decreased. Denies any pain. We will answer occasional question. Otherwise appears comfortable. 06/23/2023: Patient eating some with assistance. We'll speak occasional word example hello no etc. Appears comfortable. Surgery Dr. Holman in planning for debridement tomorrow. 06/24/2023: Patient seen this morning. Pending debridement this afternoon. Does answer very simple questions. Appears comfortable otherwise. Active Medications Hydrocodone Bitart/Acetaminophen (Hydrocodone/Apap 5-325mg 1 Each Tab) 1 each PO Q4HR PRN PRN Reason: Moderate Pain (Scale 4 to 6) Last Admin: 06/23/23 10:32 Dose: 1 each Cholecalciferol (Cholecalciferol 125 Mcg (5000 Iu) Tablet) 125 mcg PO DAILY@0700 [facility] Last Admin: 06/24/23 11:20 Dose: Not Given Enoxaparin Sodium (Enoxaparin 40 Mg/0.4 Ml Syringe) 40 mg SQ DAILY [facility] Last Admin: 06/23/23 09:09 Dose: 40 mg Escitalopram Oxalate (Escitalopram 20 Mg Tab) 20 mg PO DAILY@0700 [facility] Last Admin: 06/24/23 11:20 Dose: Not Given Sodium Chloride (Saline 0.9%) 1,000 mls @ 75 mls/hr IV .[id number] [facility] Last Admin: 06/24/23 05:20 Dose: Not Given Vancomycin HCl 1,250 mg/ (Sodium Chloride) 250 mls @ 125 mls/hr IVPB Q12H [facility] Last Admin: 06/24/23 10:34 Dose: 125 mls/hr Ampicillin Sodium/Sulbactam (Sodium 3 gm/ Sodium Chloride) 100 mls @ 200 mls/hr IVPB Q8H [facility]; Protocol Last Admin: 06/24/23 14:08 Dose: 200 mls/hr Levothyroxine Sodium (Levothyroxine 25 Mcg Tab) 25 mcg PO DAILY@0700 [facility] Last Admin: 06/24/23 11:20 Dose: Not Given Lorazepam (Lorazepam 1 Mg Tab) 1 mg PO TID PRN PRN Reason: Agitation Memantine (Memantine 10 Mg Tab) 10 mg PO BID@0700,1900 [facility] Last Admin: 06/24/23 11:20 Dose: Not Given Miscellaneous Information (Vancomycin Trough Due 1 Each Misc) 0 each MISCELLANE DIRECTED ONE Stop: 06/25/23 08:01 Naloxone HCl (Naloxone 0.4 Mg/Ml 1 Ml Vial) 0.2 mg IV Q2M PRN PRN Reason: Opioid Reversal Petrolatum (Zinc Oxide Paste (Z-Guard) 1 Applic Applic) 1 applic TOPICAL DAILY [facility] Last Admin: 06/24/23 10:34 Dose: 1 applic Senna/Docusate Sodium (Sennosides-Docusate Sodium 1 Each Tab) 2 each PO HS@1900 [facility] Last Admin: 06/23/23 17:48 Dose: Not Given Tobramycin (Tobramycin 0.3% Ophth Drops 5 Ml Btl) 1 drops BOTH EYES Q4HR [facility] Last Admin: 06/24/23 13:22 Dose: 1 drops Past Medical History Past Medical History: Dementia, Thyroid Disorder Additional Past Medical History / Comment(s): "Recent UTI, finished antibiotics today." History of Any Multi-Drug Resistant Organisms: None Reported Past Surgical History: Bladder Surgery Additional Past Surgical History / Comment(s): Bladder lift, nasal surgery, foot surgery. Past Anesthesia/Blood Transfusion Reactions: No Reported Reaction, Motion Sickness Additional Past Anesthesia/Blood Transfusion Reaction / Comment(s): "WORK UP DURING SURGERY WITH FOOT SURGERY" Past Psychological History: Anxiety, Bipolar Smoking Status: Former smoker, Unknown if ever smoked Past Alcohol Use History: None Reported Past Drug Use History: None Reported - Past Family History Father Family Medical History: Cancer Sister(s) Family Medical History: Cancer On examination: VITAL SIGNS: 97.7, 65, 16, 98/52, 99% on 2 L GENERAL APPEARANCE: Thin built, reclining in bed awake but in distress. Loss of muscle mass. HEENT: Normal external appearance of nose and ear. Oral cavity normal EYES: Pupils equal. Conjunctiva normal. NECK: JVD not raised. Mass not palpable. RESPIRATORY: Respiratory effort normal. Lungs clear to auscultation. CARDIOVASCULAR: First and second sounds normal. No edema. ABDOMEN: Soft. Liver and spleen not palpable. No tenderness. No mass palpable. PSYCHIATRY: Looking at. We'll answer occasional question. MUSCULAR skeletal: OA INVESTIGATIONS, reviewed in the clinical context: TSH 1.9 June 23: Creatinine 0.29 June 21: Consent 0.6 hemoglobin 10 platelets 309 sodium 137 potassium 3.7 creatinine 0.31 Albumin 2.9 Assessment and plan: -Large sacral ulcer, failed outpatient treatment Local wound care. Plan for surgical debridement this afternoon IV vancomycin and Unasyn -Hypothyroidism, Synthroid 25 g -Severe cognitive impairment due to late onset Alzheimer's dementia -Severe protein calorie malnutrition from decreased oral intake Encourage oral intake. Ensure. -Bipolar/anxiety Lexapro 20 mg a day -Primary osteoarthritis Tylenol as needed -DO NOT RESUSCITATE Plan for debridement afternoon. Continue other medications.
[2023-06-24] MEDS ORDERED: LIDOCAINE 2%-EPI 1:100,000 20 ML VIAL SQ ONE ×2 (17:59→19:03)
[2023-06-24] MEDS: ENOXAPARIN 40 MG/0.4 ML SYRINGE SQ SCH (18:04)
[2023-06-24] MEDS ORDERED: LACTATED RINGERS 1,000 ML IV ONE (18:16)
[2023-06-24] MEDS ORDERED: GLYCOPYRROLATE 0.2 MG/ML 2 ML VIAL ONE (18:16)
[2023-06-24] MEDS ORDERED: KETAMINE HCL IN 0.9 % NACL 50 MG/5 ML SYRINGE ONE (18:16)
[2023-06-24] MEDS ORDERED: PROPOFOL 10 MG/ML 20 ML VIAL IV ONE (18:16)
[2023-06-24] MEDS ORDERED: PHENYLEPHRINE-0.9% NACL SYG 1,000 MCG/10 ML SYRINGE ONE (18:16)
--- NOTE | 2023-06-24 19:44 | P.OP ---
Date of Procedure: 06/24/23 Description of Procedure: SURGEON: RAYMUNDO SEBASTIAN MD STAFF [employer]LECT[employer] OFFICER: NONE. PREOPERATIVE DIAGNOSES: 1. Unstageable sacrococcygeal ulcer. 2. History of dementia. 3. Hypothyroidism 4. Depressive disorder 5. Generalized anxiety disorder 6. Bipolar disorder POSTOPERATIVE DIAGNOSES: 1. Stage IV sacrococcygeal ulcer 2. History of dementia. 3. Hypothyroidism 4. Depressive disorder 5. Generalized anxiety disorder 6. Bipolar disorder 7. Stage II left buttock ulcer 8. Osteomyelitis sacrum OPERATION: 1. Sharp excisional debridement with blade and scissor of 7 x 6 cm sacrococcygeal wound to muscle and bone. 2. Water pulse lavage 3 L normal saline debridement of sacrococcygeal wound 7 x 6 cm to muscle and bone. 3. Bone biopsy of sacral 4. Sharp excisional debridement of left buttock ulcer, 3 cm x 3 cm ANESTHESIA: General. ESTIMATED BLOOD LOSS: 50 mL. COMPLICATIONS: None. SPECIMENS: Bone biopsy including tissue culture of the sacrococcygeal ulcer. FINDINGS: 1. An 7 x 6 x 2 cm sacrococcygeal ulcer, involving right buttock 2. Sacrum bone exposed consistent with stage IV sacrococcygeal ulcer. 3. Exposed bone suspicious for osteomyelitis 4. Stage II right buttock ulcer to subcutaneous tissue INDICATIONS: The patient is a 72-year-old female with a last 2 weeks developed an ulcer of the sacrum and buttocks. Patient had foul-smelling discharge with fibrinous exudate requiring excision. The ulcer is unstageable. Benefits and risks were discussed with the patient and family. Informed consent was obtained by her legal guardian DESCRIPTION: Patient was brought to the operating room, initially placed supine. After induction, she was repositioned in the left lateral decubitus position. The patient was also on schedule antibiotics. The buttocks and sacrococcygeal area were prepped and draped in a standard sterile fashion using Betadine. After a timeout protocol, attention was brought to the depth of the wound whereby moderate necrosis with brown to yellow tissue exudate and slough was found along the surface of the sacrococcygeal wound. The wound was measured to a depth of 2 cm with dimension of 7 x 6 cm with undermining along the superior aspects of at least 2 cm as well. Using a sharp excisional debridement with a #10 blade, the tissue was excised to healthy bleeding tissue to the the muscle. At the sacral, the bone was exposed. Bone biopsy was obtained using a scissor but firm. Next using a combination of Metzenbaum scissor, the periphery of the wound was also cleared of any fibrinous deposits. Along the left buttock, 3 cm ulcer was using a blade. Sharp excisional debridement down to healthy dermis and subcutaneous tissue was also performed, stage II. Bleeding was checked with electro Bovie cautery. 3 L of water jet pulse lavage was performed along the wound for mechanically debridement. All yellow exudate was addressed. Using a moist Kerlix roll 1.5, the wound was packed. An ABD x 2 were placed along the wound. Six-inch micropore tape was placed to secure the dressing. The patient was placed in adult diapers. She was awoken and taken to the postanesthesia care unit in stable condition. Intraoperative findings were discussed with the patient's power of hot blaster, daughter Farnaz [phone]
[2023-06-24] MEDS: SENNOSIDES-DOCUSATE SODIUM 1 EACH TAB PO SCH (20:45)
[2023-06-24] MEDS: HYDROmorphone 0.5 MG/0.5 ML SYRINGE IVP PRN (21:01)
[2023-06-25] MEDS: HYDROmorphone 0.5 MG/0.5 ML SYRINGE IVP PRN ×3 (03:04→21:07)
[2023-06-25] MEDS: TOBRAMYCIN 0.3% OPHTH DROPS 5 ML BTL BOTH EYES SCH ×5 (03:05→20:01)
[2023-06-25] MEDS: AMPICILLIN-SULBACTAM 3 GM in SODIUM CHLORIDE 0.9% 100 ML IVPB SCH ×3 (06:03→22:31)
[2023-06-25] MEDS: ESCITALOPRAM 20 MG TAB PO SCH (06:05)
[2023-06-25] MEDS: CHOLECALCIFEROL 125 MCG (5000 IU) TABLET PO SCH (06:05)
[2023-06-25] MEDS: LEVOTHYROXINE 25 MCG TAB PO SCH (06:05)
[2023-06-25] MEDS: MEMANTINE 10 MG TAB PO SCH ×2 (06:05→20:01)
--- NOTE | 2023-06-25 07:07 | P.PN ---
Subjective Progress Note Date: 06/24/23 Principal diagnosis: Reason for follow-up is infected pressure ulcer patient is a 72-year-old female with a past medical history significant for dementia history of recurrent UTI hypothyroidism resident of the [facility] home the patient has been brought into the hospital concerning for worsening wound to the right gluteal area concerning for infected pressure ulcer and ezio lulitis. On today's evaluation that is 06/24/2023 the patient remains to be afebrile patient is breathing comfortably on 2 L nasal cannula supplemental oxygen patient is awake but did not provide any history because of underlying dementia no vomiting diarrhea or any other changes reported by the nursing staff. Patient did not have any CBC done today creatinine 0.27 blood urine cultures currently pending. Objective - Vital Signs Vital signs: Vital Signs Temp 97.9 F 06/24/23 07:57 Pulse 67 06/24/23 07:57 Resp 16 06/24/23 07:57 BP 91/52 06/24/23 07:57 Pulse Ox 97 06/24/23 08:11 FiO2 Intake & Output 06/23/23 06/24/23 06/24/23 18:59 06:59 18:59 Output Total 300 350 Balance -300 -350 Weight 63.503 kg Output: Urine 300 350 Other: Voiding Method Indwelling Catheter Indwelling Catheter Indwelling Catheter # Bowel Movements 1 1 - Exam GENERAL DESCRIPTION: An elderly female lying in bed in no distress RESPIRATORY SYSTEM: Unlabored breathing , decreased breath sounds at bases HEART: S1 S2 regular rate and rhythm , ABDOMEN: Soft , no tenderness EXTREMITIES: No edema feet - Labs CBC & Chem 7: 06/21/23 07:45 06/24/23 05:34 Labs: Abnormal Lab Results - Last 24 Hours (Table) 06/24/23 Range/Units 05:34 Creatinine 0.27 L (0.52-1.04) mg/dL Microbiology - Last 24 Hours (Table) 06/20/23 21:40 Blood Culture - Preliminary Blood 06/21/23 17:38 Urine Culture - Final Urine,Voided Assessment and Plan (1) Infected pressure ulcer Current Visit: Yes Status: Acute Code(s): L89.90 - PRESSURE ULCER OF UNSPECIFIED SITE, UNSPECIFIED STAGE; L08.9 - LOCAL INFECTION OF THE SKIN AND SUBCUTANEOUS TISSUE, UNSP SNOMED Code(s): 953333127 (2) Unstageable pressure ulcer of buttock Current Visit: Yes Status: Acute Code(s): L89.300 - PRESSURE ULCER OF UNSPECIFIED BUTTOCK, UNSTAGEABLE SNOMED Code(s): 22068434446339448 Plan: 1-patient presented to hospital with worsening wound to the right gluteal area with unstageable pressure ulcer with significant necrotic tissue and surrounding redness and foul-smelling drainage reviewed need to cover for both gram-positive as well as gram-negative pathogen 2patient has been evaluated by general surgery And the patient is scheduled for debridement of the sacrococcygeal/right gluteal pressure ulcer this afternoon at which time deep cultures will be obtained. 3patient to continue with the vancomycin and Unasyn while waiting for the culture to be finalized and monitor clinical course and kidney function closely Dictation was produced using [employer] dictation software. please excuse any grammatical, word or spelling
[2023-06-25] MEDS ORDERED: VANCOMYCIN TROUGH DUE 1 EACH MISC MISCELLANE ONE (08:00)
--- NOTE | 2023-06-25 09:14 | P.PN ---
Subjective Progress Note Date: 06/25/23 CHIEF COMPLAINT: Sacral ulcer HISTORY OF PRESENT ILLNESS: The patient is a 72-year-old female presents with an ulcer. She is non-verbal. She is status post debridement of the sacrum. ROS: No reports of nausea and vomiting. No bowel movements. No fevers or chills. No new chest pain. No productive sputum PHYSICAL EXAM: VITAL SIGNS: Reviewed CONSTITUTIONAL: Well developed and in no acute distress. EYES: Conjuctivae without sclera icterus. Extraocular movements grossly intact. HEAD, EARS, NOSE, THROAT: Moist buccal mucosa. Head is atraumatic, normocephalic. Hears conversational speech. No nasal drainage. RESPIRATORY: Non-labored respirations and equal bilateral excursions. CARDIOVASCULAR: Palpable 2+ radial pulses. ABDOMEN: Scaphoid. MUSCULOSKELETAL: No gross deformity of the lower extremities noted. No clubbing. No cyanosis. SKIN: Good skin turgor. Well perfused. Dressing intact. NEUROLOGIC: Cranial nerves II through XII grossly intact. No focal or lateralizing signs. PSYCH: Flat affect. CLINICAL LABS: Reviewed. ASSESSMENT: 1. Sacral ulcer PLAN: 1. Will need re-check of wound after 48 hrs wet-to-dry dressing. 2. Application of wound vac while inpatient anticipated for Saturday Objective - Vital Signs Vital signs: Vital Signs Temp 97.6 F 06/25/23 08:10 Pulse 80 06/25/23 08:10 Resp 16 06/25/23 08:10 BP 101/61 06/25/23 08:10 Pulse Ox 93 L 06/25/23 08:10 FiO2 Intake & Output 06/24/23 06/25/23 06/25/23 18:59 06:59 18:59 Intake Total 1150 260 Output Total 850 Balance 1150 -590 Intake: IV 400 200 Intake, IV Titration 750 Amount Ampicillin-Sulbactam 3 gm 750 In Sodium Chloride 0.9% 100 ml @ 200 mls/hr IVPB Q8H [facility] Rx#:[id number] Oral 60 Output: Urine 800 Estimated Blood Loss 50 Other: Voiding Method Indwelling Catheter Indwelling Catheter # Bowel Movements 1 - Labs CBC & Chem 7: 06/21/23 07:45 06/24/23 05:34 Labs: Microbiology - Last 24 Hours (Table) 06/20/23 21:40 Blood Culture - Preliminary Blood
[2023-06-25] MEDS: HYDROcodone/APAP 5-325MG 1 EACH TAB PO PRN ×3 (09:28→20:01)
[2023-06-25] MEDS: VANCOMYCIN 1,250 MG in SODIUM CHLORIDE 0.9% 250 ML IVPB SCH ×2 (09:29→20:01)
[2023-06-25] MEDS: ENOXAPARIN 40 MG/0.4 ML SYRINGE SQ SCH (09:29)
[2023-06-25] MEDS: ZINC OXIDE PASTE (Z-GUARD) 1 APPLIC TOPICAL SCH (09:30)
[2023-06-25] MEDS: SODIUM CHLORIDE 0.9% 1,000 ML IV SCH (09:31)
[2023-06-25 11:07] LABS: African American GFR (CKD) >90 (>60 ml/min/1.73 sqM); Non-African American GFR(CKD) >90 (>60 ml/min/1.73 sqM)
--- NOTE | 2023-06-25 16:07 | P.PN ---
Subjective Progress Note Date: 06/25/23 Principal diagnosis: Reason for follow-up is infected pressure ulcer patient is a 72-year-old female with a past medical history significant for dementia history of recurrent UTI hypothyroidism resident of the [facility] home the patient has been brought into the hospital concerning for worsening wound to the right gluteal area concerning for infected pressure ulcer and ezio lulitis Patient is status post Sharp excisional debridement with blade and scissor of 7 x 6 cm sacrococcygeal wound to muscle and bone. Completed by general surgery on 06/24/2023. On today's evaluation that is 06/25/2023 patient remains to be afebrile the patient is breathing comfortably on room air and does not seem to be in any distress no vomiting diarrhea or any other changes reported by the nursing staff patient cannot provide any history. Patient did have creatinine 0.27 OR cultures currently pending Objective - Vital Signs Vital signs: Vital Signs Temp 97.9 F 06/25/23 13:10 Pulse 64 06/25/23 13:10 Resp 16 06/25/23 13:10 BP 97/56 06/25/23 13:10 Pulse Ox 95 06/25/23 13:10 FiO2 Intake & Output 06/24/23 06/25/23 06/25/23 18:59 06:59 18:59 Intake Total 1150 260 Output Total 850 Balance 1150 -590 Intake: IV 400 200 Intake, IV Titration 750 Amount Ampicillin-Sulbactam 3 gm 750 In Sodium Chloride 0.9% 100 ml @ 200 mls/hr IVPB Q8H [facility] Rx#:[id number] Oral 60 Output: Urine 800 Estimated Blood Loss 50 Other: Voiding Method Indwelling Catheter Indwelling Catheter Indwelling Catheter # Bowel Movements 1 - Exam GENERAL DESCRIPTION: An elderly female lying in bed in no distress RESPIRATORY SYSTEM: Unlabored breathing , decreased breath sounds at bases HEART: S1 S2 regular rate and rhythm , ABDOMEN: Soft , no tenderness EXTREMITIES: No edema feet - Labs CBC & Chem 7: 06/21/23 07:45 06/25/23 08:28 Labs: Abnormal Lab Results - Last 24 Hours (Table) 06/25/23 Range/Units 08:28 Creatinine 0.27 L (0.52-1.04) mg/dL Assessment and Plan (1) Infected pressure ulcer Current Visit: Yes Status: Acute Code(s): L89.90 - PRESSURE ULCER OF UNSPECIFIED SITE, UNSPECIFIED STAGE; L08.9 - LOCAL INFECTION OF THE SKIN AND SUBCUTANEOUS TISSUE, UNSP SNOMED Code(s): 657546827 (2) Stage 4 skin ulcer of sacral region Current Visit: Yes Status: Acute Code(s): L98.429 - NON-PRESSURE CHRONIC ULCER OF BACK WITH UNSPECIFIED SEVERITY SNOMED Code(s): 74242167 Plan: 1-patient presented to hospital with worsening wound to the right gluteal area with unstageable pressure ulcer with significant necrotic tissue and surrounding redness and foul-smelling drainage reviewed need to cover for both gram-positive as well as gram-negative pathogen 2patient has been evaluated by general surgery and the patient is status post debridement of the sacrococcygeal ulcer which was extending all the way down to the bone concerning for osteomyelitis. 3patient to continue the vancomycin Unasyn while waiting for the culture to finalize to determine her discharge antibiotics Dictation was produced using [employer] dictation software. please excuse any grammatical, word or spelling Time with Patient: Less than 30
[2023-06-25] MEDS: SENNOSIDES-DOCUSATE SODIUM 1 EACH TAB PO SCH (20:01)
--- NOTE | 2023-06-25 20:29 | P.PN ---
Progress Note - Text Progress Note Date: 06/25/23 Patient is a 72-year-old female with a PMH of dementia and hypothyroidism who was brought into the emergency room from [facility] home for a sacral ulcer. History obtained from the chart as the patient was not answering any questions which is baseline for her. Attempted to contact the patient's family at the number listed in the chart with no response. The patient had reportedly developed a sacral ulcer which was noticed last week and that she was started on Augmentin on the along with local wound care. The wound however became foul smelling and the patient was sent to the emergency room for further care. EKG in emergency room revealed sinus rhythm at 86 bpm with poor baseline as revi ewed by me. Laboratory evaluation was remarkable for hemoglobin of 11.1, ESR 78, sodium 133, BUN 24, creatinine 0.36, CRP 17.6, albumin 2.9. ED documentation reviewed and case discussed with ED provider. 06/22/2023: I assumed care of the patient today. Reclining in bed. It is feeding the patient. Oral intake decreased. Denies any pain. We will answer occasional question. Otherwise appears comfortable. 06/23/2023: Patient eating some with assistance. We'll speak occasional word example hello no etc. Appears comfortable. Surgery Dr. Holman in planning for debridement tomorrow. 06/24/2023: Patient seen this morning. Pending debridement this afternoon. Does answer very simple questions. Appears comfortable otherwise. 06/25/2023: Patient comfortable. No new issues. ID awaiting culture results to finalize antibiotics. door worker following. Active Medications Hydrocodone Bitart/Acetaminophen (Hydrocodone/Apap 5-325mg 1 Each Tab) 1 each PO Q4HR PRN PRN Reason: Moderate Pain (Scale 4 to 6) Last Admin: 06/25/23 20:01 Dose: 1 each Cholecalciferol (Cholecalciferol 125 Mcg (5000 Iu) Tablet) 125 mcg PO DAILY@0700 [facility] Last Admin: 06/25/23 06:05 Dose: 125 mcg Enoxaparin Sodium (Enoxaparin 40 Mg/0.4 Ml Syringe) 40 mg SQ DAILY [facility] Last Admin: 06/25/23 09:29 Dose: 40 mg Escitalopram Oxalate (Escitalopram 20 Mg Tab) 20 mg PO DAILY@0700 [facility] Last Admin: 06/25/23 06:05 Dose: 20 mg Hydromorphone HCl (Hydromorphone 0.5 Mg/0.5 Ml Syringe) 0.5 mg IVP Q3HR PRN PRN Reason: Moderate Pain (Scale 4 to 6) Last Admin: 06/25/23 12:00 Dose: 0.5 mg Sodium Chloride (Saline 0.9%) 1,000 mls @ 75 mls/hr IV .[id number] [facility] Last Admin: 06/25/23 09:31 Dose: 75 mls/hr Vancomycin HCl 1,250 mg/ (Sodium Chloride) 250 mls @ 125 mls/hr IVPB Q12H [facility] Last Admin: 06/25/23 20:01 Dose: 125 mls/hr Ampicillin Sodium/Sulbactam (Sodium 3 gm/ Sodium Chloride) 100 mls @ 200 mls/hr IVPB Q8H [facility]; Protocol Last Admin: 06/25/23 14:35 Dose: 200 mls/hr Levothyroxine Sodium (Levothyroxine 25 Mcg Tab) 25 mcg PO DAILY@0700 [facility] Last Admin: 06/25/23 06:05 Dose: 25 mcg Lorazepam (Lorazepam 1 Mg Tab) 1 mg PO TID PRN PRN Reason: Agitation Memantine (Memantine 10 Mg Tab) 10 mg PO BID@0700,1900 [facility] Last Admin: 06/25/23 20:01 Dose: 10 mg Naloxone HCl (Naloxone 0.4 Mg/Ml 1 Ml Vial) 0.2 mg IV Q2M PRN PRN Reason: Opioid Reversal Petrolatum (Zinc Oxide Paste (Z-Guard) 1 Applic Applic) 1 applic TOPICAL DAILY [facility] Last Admin: 06/25/23 09:30 Dose: 1 applic Senna/Docusate Sodium (Sennosides-Docusate Sodium 1 Each Tab) 2 each PO HS@1900 [facility] Last Admin: 06/25/23 20:01 Dose: 2 each Tobramycin (Tobramycin 0.3% Ophth Drops 5 Ml Btl) 1 drops BOTH EYES Q4HR [facility] Last Admin: 06/25/23 20:01 Dose: 1 drops Past Medical History Past Medical History: Dementia, Thyroid Disorder Additional Past Medical History / Comment(s): "Recent UTI, finished antibiotics today." History of Any Multi-Drug Resistant Organisms: None Reported Past Surgical History: Bladder Surgery Additional Past Surgical History / Comment(s): Bladder lift, nasal surgery, foot surgery. Past Anesthesia/Blood Transfusion Reactions: No Reported Reaction, Motion Sickness Additional Past Anesthesia/Blood Transfusion Reaction / Comment(s): "WORK UP DURING SURGERY WITH FOOT SURGERY" Past Psychological History: Anxiety, Bipolar Smoking Status: Former smoker, Unknown if ever smoked Past Alcohol Use History: None Reported Past Drug Use History: None Reported - Past Family History Father Family Medical History: Cancer Sister(s) Family Medical History: Cancer On examination: VITAL SIGNS: 98, 94, 16, 96/53, 99% room air GENERAL APPEARANCE: Thin built, reclining in bed awake but in distress. Loss of muscle mass. HEENT: Normal external appearance of nose and ear. Oral cavity normal EYES: Pupils equal. Conjunctiva normal. NECK: JVD not raised. Mass not palpable. RESPIRATORY: Respiratory effort normal. Lungs clear to auscultation. CARDIOVASCULAR: First and second sounds normal. No edema. ABDOMEN: Soft. Liver and spleen not palpable. No tenderness. No mass palpable. PSYCHIATRY: Looking at. We'll answer occasional question. MUSCULAR skeletal: OA INVESTIGATIONS, reviewed in the clinical context: TSH 1.9 June 23: Creatinine 0.29 June 21: Consent 0.6 hemoglobin 10 platelets 309 sodium 137 potassium 3.7 creatinine 0.31 Albumin 2.9 Assessment and plan: -Large sacral ulcer, failed outpatient treatment Local wound care. Surgical debridement done on June 24.-Pending cultures IV vancomycin and Unasyn -Hypothyroidism, Synthroid 25 g -Severe cognitive impairment due to late onset Alzheimer's dementia -Severe protein calorie malnutrition from decreased oral intake Encourage oral intake. Ensure. -Bipolar/anxiety Lexapro 20 mg a day -Primary osteoarthritis Tylenol as needed -DO NOT RESUSCITATE Depending on cultures patient is antibiotics will be finalized by ID. door worker looking into disposition
[2023-06-26] MEDS: TOBRAMYCIN 0.3% OPHTH DROPS 5 ML BTL BOTH EYES SCH ×7 (00:01→21:14)
[2023-06-26] MEDS: HYDROmorphone 0.5 MG/0.5 ML SYRINGE IVP PRN ×3 (02:36→08:34)
[2023-06-26] MEDS: CHOLECALCIFEROL 125 MCG (5000 IU) TABLET PO SCH (03:13)
[2023-06-26] MEDS: ESCITALOPRAM 20 MG TAB PO SCH (03:13)
[2023-06-26] MEDS: LEVOTHYROXINE 25 MCG TAB PO SCH (03:13)
[2023-06-26] MEDS: MEMANTINE 10 MG TAB PO SCH ×2 (03:13→18:14)
[2023-06-26] MEDS: SODIUM CHLORIDE 0.9% 1,000 ML IV SCH ×2 (03:19→11:30)
[2023-06-26] MEDS: AMPICILLIN-SULBACTAM 3 GM in SODIUM CHLORIDE 0.9% 100 ML IVPB SCH ×2 (05:33→18:47)
[2023-06-26] MEDS: VANCOMYCIN 1,250 MG in SODIUM CHLORIDE 0.9% 250 ML IVPB SCH (08:33)
[2023-06-26] MEDS: ZINC OXIDE PASTE (Z-GUARD) 1 APPLIC TOPICAL SCH (08:37)
[2023-06-26] MEDS: ENOXAPARIN 40 MG/0.4 ML SYRINGE SQ SCH (09:51)
[2023-06-26] MEDS ORDERED: IV FLUID CONTINUATION 1,000 ML IV ONE ×2 (12:47)
[2023-06-26] MEDS ORDERED: fentaNYL (PF) 50 MCG/ML 2 ML AMP ONE (13:52)
[2023-06-26] MEDS ORDERED: ONDANSETRON 4 MG/2 ML VIAL ONE (13:52)
[2023-06-26] MEDS ORDERED: LIDOCAINE 1% INJ 10MG/ML (20 ML MDV) ONE (13:52)
[2023-06-26] MEDS ORDERED: PHENYLEPHRINE-0.9% NACL SYG 1,000 MCG/10 ML SYRINGE ONE (13:52)
[2023-06-26] MEDS ORDERED: SUCCINYLCHOLINE CHLORIDE 200 MG/10 ML VIAL IV ONE (13:52)
[2023-06-26] MEDS ORDERED: PROPOFOL 10 MG/ML 20 ML VIAL IV ONE (13:52)
[2023-06-26] MEDS ORDERED: ePHEDrine 50 MG/ML 1 ML VIAL ONE (13:52)
[2023-06-26] MEDS ORDERED: LACTATED RINGERS 1,000 ML IV ONE (14:47)
[2023-06-26] MEDS ORDERED: VANCOMYCIN 1,000 MG in SODIUM CHLORIDE 0.9% 250 ML IVPB SCH (16:00)
[2023-06-26] MEDS: HYDROcodone/APAP 5-325MG 1 EACH TAB PO PRN (17:57)
[2023-06-26] MEDS: PIPERACILLIN-TAZOBACTAM 3.375 GM in SODIUM CHLORIDE 0.9% 100 ML IVPB SCH (17:58)
[2023-06-26] MEDS: SENNOSIDES-DOCUSATE SODIUM 1 EACH TAB PO SCH (18:15)
--- NOTE | 2023-06-26 20:27 | P.PN ---
Progress Note - Text Progress Note Date: 06/26/23 Patient is a 72-year-old female with a PMH of dementia and hypothyroidism who was brought into the emergency room from [facility] home for a sacral ulcer. History obtained from the chart as the patient was not answering any questions which is baseline for her. Attempted to contact the patient's family at the number listed in the chart with no response. The patient had reportedly developed a sacral ulcer which was noticed last week and that she was started on Augmentin on the along with local wound care. The wound however became foul smelling and the patient was sent to the emergency room for further care. EKG in emergency room revealed sinus rhythm at 86 bpm with poor baseline as revi ewed by me. Laboratory evaluation was remarkable for hemoglobin of 11.1, ESR 78, sodium 133, BUN 24, creatinine 0.36, CRP 17.6, albumin 2.9. ED documentation reviewed and case discussed with ED provider. 06/22/2023: I assumed care of the patient today. Reclining in bed. It is feeding the patient. Oral intake decreased. Denies any pain. We will answer occasional question. Otherwise appears comfortable. 06/23/2023: Patient eating some with assistance. We'll speak occasional word example hello no etc. Appears comfortable. Surgery Dr. Holman in planning for debridement tomorrow. 06/24/2023: Patient seen this morning. Pending debridement this afternoon. Does answer very simple questions. Appears comfortable otherwise. 06/25/2023: Patient comfortable. No new issues. ID awaiting culture results to finalize antibiotics. scrap worker following. 06/26/2023: No new issues. Pending culture results to finalize antibiotics per ID. Active Medications Hydrocodone Bitart/Acetaminophen (Hydrocodone/Apap 5-325mg 1 Each Tab) 1 each PO Q4HR PRN PRN Reason: Moderate Pain (Scale 4 to 6) Last Admin: 06/26/23 17:57 Dose: 1 each Cholecalciferol (Cholecalciferol 125 Mcg (5000 Iu) Tablet) 125 mcg PO DAILY@0700 [facility] Last Admin: 06/26/23 03:13 Dose: Not Given Enoxaparin Sodium (Enoxaparin 40 Mg/0.4 Ml Syringe) 40 mg SQ DAILY [facility] Last Admin: 06/26/23 09:51 Dose: Not Given Escitalopram Oxalate (Escitalopram 20 Mg Tab) 20 mg PO DAILY@0700 [facility] Last Admin: 06/26/23 03:13 Dose: Not Given Hydromorphone HCl (Hydromorphone 0.5 Mg/0.5 Ml Syringe) 0.5 mg IVP Q3HR PRN PRN Reason: Moderate Pain (Scale 4 to 6) Last Admin: 06/26/23 08:34 Dose: 0.5 mg Sodium Chloride (Saline 0.9%) 1,000 mls @ 75 mls/hr IV .[id number] [facility] Last Admin: 06/26/23 11:30 Dose: Not Given Piperacillin Sod/Tazobactam (Sod 3.375 gm/ Sodium Chloride) 100 mls @ 25 mls/hr IVPB Q8HR [facility]; Protocol Last Admin: 06/26/23 17:58 Dose: 25 mls/hr Levothyroxine Sodium (Levothyroxine 25 Mcg Tab) 25 mcg PO DAILY@0700 [facility] Last Admin: 06/26/23 03:13 Dose: Not Given Lorazepam (Lorazepam 1 Mg Tab) 1 mg PO TID PRN PRN Reason: Agitation Memantine (Memantine 10 Mg Tab) 10 mg PO BID@0700,1900 [facility] Last Admin: 06/26/23 18:14 Dose: 10 mg Naloxone HCl (Naloxone 0.4 Mg/Ml 1 Ml Vial) 0.2 mg IV Q2M PRN PRN Reason: Opioid Reversal Petrolatum (Zinc Oxide Paste (Z-Guard) 1 Applic Applic) 1 applic TOPICAL DAILY [facility] Last Admin: 06/26/23 08:37 Dose: 1 applic Senna/Docusate Sodium (Sennosides-Docusate Sodium 1 Each Tab) 2 each PO HS@1900 [facility] Last Admin: 06/26/23 18:15 Dose: 2 each Tobramycin (Tobramycin 0.3% Ophth Drops 5 Ml Btl) 1 drops BOTH EYES Q4HR [facility] Last Admin: 06/26/23 18:04 Dose: 1 drops Past Medical History Past Medical History: Dementia, Thyroid Disorder Additional Past Medical History / Comment(s): "Recent UTI, finished antibiotics today." History of Any Multi-Drug Resistant Organisms: None Reported Past Surgical History: Bladder Surgery Additional Past Surgical History / Comment(s): Bladder lift, nasal surgery, foot surgery. Past Anesthesia/Blood Transfusion Reactions: No Reported Reaction, Motion Sickness Additional Past Anesthesia/Blood Transfusion Reaction / Comment(s): "WORK UP DURING SURGERY WITH FOOT SURGERY" Past Psychological History: Anxiety, Bipolar Smoking Status: Former smoker, Unknown if ever smoked Past Alcohol Use History: None Reported Past Drug Use History: None Reported - Past Family History Father Family Medical History: Cancer Sister(s) Family Medical History: Cancer On examination: VITAL SIGNS: 91, 12, 10 1 x 73, 93% on 4 L GENERAL APPEARANCE: Thin built, reclining in bed awake but in distress. Loss of muscle mass. HEENT: Normal external appearance of nose and ear. Oral cavity normal EYES: Pupils equal. Conjunctiva normal. NECK: JVD not raised. Mass not palpable. RESPIRATORY: Respiratory effort normal. Lungs clear to auscultation. CARDIOVASCULAR: First and second sounds normal. No edema. ABDOMEN: Soft. Liver and spleen not palpable. No tenderness. No mass palpable. PSYCHIATRY: Looking at. We'll answer occasional question. MUSCULAR skeletal: OA INVESTIGATIONS, reviewed in the clinical context: TSH 1.9 June 23: Creatinine 0.29 June 21: Consent 0.6 hemoglobin 10 platelets 309 sodium 137 potassium 3.7 creatinine 0.31 Albumin 2.9 Assessment and plan: -Large sacral ulcer, failed outpatient treatment Local wound care. Surgical debridement done on June 24.-Pending cultures IV vancomycin and Unasyn -Hypothyroidism, Synthroid 25 g -Severe cognitive impairment due to late onset Alzheimer's dementia -Severe protein calorie malnutrition from decreased oral intake Encourage oral intake. Ensure. -Bipolar/anxiety Lexapro 20 mg a day -Primary osteoarthritis Tylenol as needed -DO NOT RESUSCITATE Pending culture results to finalize antibiotics would DC
--- NOTE | 2023-06-26 22:46 | P.PN ---
Subjective Progress Note Date: 06/26/23 Principal diagnosis: WOund vac intact. No issues Objective - Vital Signs Vital signs: Vital Signs Temp 97.7 F 06/26/23 19:20 Pulse 63 06/26/23 19:20 Resp 16 06/26/23 19:20 BP 107/55 06/26/23 19:20 Pulse Ox 92 L 06/26/23 19:20 FiO2 Intake & Output 06/26/23 06/26/23 06/27/23 06:59 18:59 06:59 Intake Total 800 Output Total 200 205 Balance -200 595 Weight 63.503 kg Intake: IV 800 Output: Urine 200 200 Estimated Blood Loss 5 Other: Voiding Method Indwelling Catheter Indwelling Catheter - Labs CBC & Chem 7: 06/21/23 07:45 06/25/23 08:28 Labs: Microbiology - Last 24 Hours (Table) 06/25/23 19:15 Gram Stain - Preliminary Back Wound Culture - Preliminary Gram Neg Bacilli 06/24/23 19:15 Gram Stain - Preliminary Back Wound Culture - Preliminary Gram Neg Bacilli 06/20/23 21:40 Blood Culture - Final Blood
--- NOTE | 2023-06-26 23:00 | P.OP ---
Date of Procedure: 06/26/23 Description of Procedure: SURGEON: RAYMUNDO SEBASTIAN MD [employer] [employer] T[employer] ERECTING: NONE. PREOPERATIVE DIAGNOSES: 1. Stage IV sacrococcygeal ulcer 2. History of dementia. 3. Hypothyroidism 4. Depressive disorder 5. Generalized anxiety disorder 6. Bipolar disorder 7. Stage II left buttock ulcer 8. Osteomyelitis sacrum POSTOPERATIVE DIAGNOSES: 1. Stage IV sacrococcygeal ulcer 2. History of dementia. 3. Hypothyroidism 4. Depressive disorder 5. Generalized anxiety disorder 6. Bipolar disorder 7. Stage II left buttock ulcer 8. Osteomyelitis sacrum OPERATION: 1. Sharp excisional debridement with blade and scissor of 9 x 7 x 2 cm sacrococcygeal wound to muscle and bone. 2. Water pulse lavage 3 L normal saline debridement of sacrococcygeal wound 9 x 7 x 2 cm to muscle and bone. 3. Bone biopsy of sacrum 4. Application of wound VAC, 9 x 7 x 2 cm sacrococcygeal ANESTHESIA: General. ESTIMATED BLOOD LOSS: 5 mL. COMPLICATIONS: None. SPECIMENS: Bone biopsy including tissue culture of the sacrococcygeal ulcer. FINDINGS: 1. An 9 centimeter length x 7 centimeter width x 2 cm depth sacrococcygeal ulcer, involving right buttock 2. Sacrum bone exposed consistent with stage IV sacrococcygeal ulcer. 3. Exposed bone suspicious for osteomyelitis 4. Stage II right buttock ulcer to subcutaneous tissue 5. Circumferential undermining 2 cm INDICATIONS: The patient is a 72-year-old female who states for sacrococcygeal ulcer. 2 days ago, debridement was performed with moderate exudate. She presents today for application of wound VAC including additional debridement. Benefits and risks were discussed with the patient and family. Informed consent was obtained by her legal guardian DESCRIPTION: Patient was brought to the operating room, initially placed supine. After induction, she was repositioned in the left lateral decubitus position. The patient was also on schedule antibiotics. The buttocks and sacrococcygeal area were prepped and draped in a standard sterile fashion using Betadine. After a timeout protocol, attention was brought to the depth of the wound whereby minimal ascites noticed exudate was found. The sacrococcygeal wound was palpated in the depths of the wound with bone biopsies obtained. The wound was measured to a depth of 2 cm with dimension of 9 centimeter length x 6 cm width undermining along the superior aspects of at least 2 cm as well. Using a sharp excisional debridement with a #10 blade, the tissue was excised to healthy bleeding tissue to the the muscle. Bleeding was checked with electro Bovie cautery. 3 L of water jet pulse lavage was performed along the wound for mechanically debridement. A medium-sized black sponge was cut to size with adapter placed. Adhesive Tegaderm was placed. Extension along the right thigh was placed to prevent pressure ulceration from the tubing. Pressure was adjusted to -125 mmHg pressure without air leaks. She was awoken and taken to the postanesthesia care unit in stable condition. Her daughter Farnaz was updated of care.
[2023-06-27] MEDS: PIPERACILLIN-TAZOBACTAM 3.375 GM in SODIUM CHLORIDE 0.9% 100 ML IVPB SCH ×3 (00:11→16:04)
[2023-06-27] MEDS: TOBRAMYCIN 0.3% OPHTH DROPS 5 ML BTL BOTH EYES SCH ×6 (00:14→20:13)
[2023-06-27] MEDS: SODIUM CHLORIDE 0.9% 1,000 ML IV SCH ×2 (00:16→14:20)
[2023-06-27] MEDS: LEVOTHYROXINE 25 MCG TAB PO SCH (05:26)
[2023-06-27] MEDS: CHOLECALCIFEROL 125 MCG (5000 IU) TABLET PO SCH (05:26)
[2023-06-27] MEDS: HYDROcodone/APAP 5-325MG 1 EACH TAB PO PRN ×2 (05:26→12:45)
[2023-06-27] MEDS: MEMANTINE 10 MG TAB PO SCH ×2 (05:29→18:14)
[2023-06-27] MEDS: ESCITALOPRAM 20 MG TAB PO SCH (05:29)
[2023-06-27] MEDS: ENOXAPARIN 40 MG/0.4 ML SYRINGE SQ SCH (08:47)
[2023-06-27] MEDS: ZINC OXIDE PASTE (Z-GUARD) 1 APPLIC TOPICAL SCH (08:48)
--- NOTE | 2023-06-27 16:32 | P.PN ---
Subjective Progress Note Date: 06/26/23 Principal diagnosis: Reason for follow-up is infected pressure ulcer patient is a 72-year-old female with a past medical history significant for dementia history of recurrent UTI hypothyroidism resident of the [facility] home the patient has been brought into the hospital concerning for worsening wound to the right gluteal area concerning for infected pressure ulcer and ezio lulitis Patient is status post Sharp excisional debridement with blade and scissor of 7 x 6 cm sacrococcygeal wound to muscle and bone. Completed by general surgery on 06/24/2023.Patient did have a repeat Sharp excisional debridement with blade and scissor of 9 x 7 x 2 cm sacrococcygeal wound to m uscle and bone. My surgery on 06/26/2023. On today's evaluation that is 06/26/2023 the patient continues to be afebrile patient is breathing comfortably room air patient not a very good historian no vomiting diarrhea with the changes reported by the nursing staff. Patient did have a creatinine of 0.27 wound culture currently growing gram- negative Objective - Vital Signs Vital signs: Vital Signs Temp 97.7 F 06/26/23 07:49 Pulse 83 06/26/23 16:23 Resp 11 L 06/26/23 16:23 BP 102/49 06/26/23 16:23 Pulse Ox 93 L 06/26/23 16:23 FiO2 Intake & Output 06/25/23 06/26/23 06/26/23 18:59 06:59 18:59 Intake Total 800 Output Total 300 200 5 Balance -300 -200 795 Weight 63.503 kg Intake: IV 800 Output: Urine 300 200 Uretheral (Enriquez) 300 Estimated Blood Loss 5 Other: Voiding Method Indwelling Catheter Indwelling Catheter Indwelling Catheter # Bowel Movements 0 - Exam GENERAL DESCRIPTION: An elderly female lying in bed in no distress RESPIRATORY SYSTEM: Unlabored breathing , decreased breath sounds at bases HEART: S1 S2 regular rate and rhythm , ABDOMEN: Soft , no tenderness EXTREMITIES: No edema feet - Labs CBC & Chem 7: 06/21/23 07:45 06/25/23 08:28 Labs: Microbiology - Last 24 Hours (Table) 06/25/23 19:15 Gram Stain - Preliminary Back Wound Culture - Preliminary Gram Neg Bacilli 06/24/23 19:15 Gram Stain - Preliminary Back Wound Culture - Preliminary Gram Neg Bacilli 06/20/23 21:40 Blood Culture - Final Blood Assessment and Plan (1) Infected pressure ulcer Current Visit: Yes Status: Acute Code(s): L89.90 - PRESSURE ULCER OF UNSPECIFIED SITE, UNSPECIFIED STAGE; L08.9 - LOCAL INFECTION OF THE SKIN AND SUBCUTANEOUS TISSUE, UNSP SNOMED Code(s): 574515813 (2) Stage 4 skin ulcer of sacral region Current Visit: Yes Status: Acute Code(s): L98.429 - NON-PRESSURE CHRONIC ULCER OF BACK WITH UNSPECIFIED SEVERITY SNOMED Code(s): 68180112 Plan: 1-patient presented to hospital with worsening wound to the right gluteal area with unstageable pressure ulcer with significant necrotic tissue and surrounding redness and foul-smelling drainage reviewed need to cover for both gram-positive as well as gram-negative pathogen 2patient has been evaluated by general surgery and the patient is status post debridement of the sacrococcygeal ulcer which was extending all the way down to the bone concerning for osteomyelitis With repeat debridement completed 06/26/2023. 3local culture currently growing gram-negative bacilli antibiotic has been switched over to Zosyn Unasyn and vancomycin has been discontinued discharge antibiotic on the basis of final culture Dictation was produced using [employer] dictation software. please excuse any grammatical, word or spelling Time with Patient: Less than 30
--- NOTE | 2023-06-27 16:33 | P.PN ---
Subjective Progress Note Date: 06/27/23 Principal diagnosis: Reason for follow-up is infected pressure ulcer patient is a 72-year-old female with a past medical history significant for dementia history of recurrent UTI hypothyroidism resident of the [facility] home the patient has been brought into the hospital concerning for worsening wound to the right gluteal area concerning for infected pressure ulcer and ezio lulitis Patient is status post Sharp excisional debridement with blade and scissor of 7 x 6 cm sacrococcygeal wound to muscle and bone. Completed by general surgery on 06/24/2023.Patient did have a repeat Sharp excisional debridement with blade and scissor of 9 x 7 x 2 cm sacrococcygeal wound to m uscle and bone. My surgery on 06/26/2023. On today's evaluation that is 06/27/2023 the patient remains to be afebrile the patient is breathing comfortably on room air, the patient does not seem to be any distressed no vomiting diarrhea or any other changes reported by the nursing staff patient cannot provide any history. No new labs has been obtained today culture finalized with Pseudomonas and P roteus and Tiara Objective - Vital Signs Vital signs: Vital Signs Temp 97.8 F 06/27/23 07:36 Pulse 72 06/27/23 07:36 Resp 16 06/27/23 07:36 BP 130/85 06/27/23 07:36 Pulse Ox 98 06/27/23 08:42 FiO2 Intake & Output 06/26/23 06/27/23 06/27/23 18:59 06:59 18:59 Intake Total 800 Output Total 205 700 Balance 595 -700 Weight 63.503 kg Intake: IV 800 Output: Urine 200 700 Estimated Blood Loss 5 Other: Voiding Method Indwelling Catheter Indwelling Catheter Indwelling Catheter - Exam GENERAL DESCRIPTION: An elderly female lying in bed in no distress RESPIRATORY SYSTEM: Unlabored breathing , decreased breath sounds at bases HEART: S1 S2 regular rate and rhythm , ABDOMEN: Soft , no tenderness EXTREMITIES: No edema feet - Labs CBC & Chem 7: 06/21/23 07:45 06/25/23 08:28 Labs: Microbiology - Last 24 Hours (Table) 06/25/23 19:15 Gram Stain - Preliminary Back Wound Culture - Preliminary Pseudomonas aeruginosa 06/24/23 19:15 Gram Stain - Preliminary Back Wound Culture - Preliminary Pseudomonas aeruginosa Proteus mirabilis Tiara albicans Assessment and Plan (1) Infected pressure ulcer Current Visit: Yes Status: Acute Code(s): L89.90 - PRESSURE ULCER OF UNSPECIFIED SITE, UNSPECIFIED STAGE; L08.9 - LOCAL INFECTION OF THE SKIN AND SUBCUTANEOUS TISSUE, UNSP SNOMED Code(s): 877195346 (2) Stage 4 skin ulcer of sacral region Current Visit: Yes Status: Acute Code(s): L98.429 - NON-PRESSURE CHRONIC ULCER OF BACK WITH UNSPECIFIED SEVERITY SNOMED Code(s): 72408285 Plan: 1-patient presented to hospital with worsening wound to the right gluteal area with unstageable pressure ulcer with significant necrotic tissue and surrounding redness and foul-smelling drainage reviewed need to cover for both gram-positive as well as gram-negative pathogen 2patient has been evaluated by general surgery and the patient is status post debridement of the sacrococcygeal ulcer which was extending all the way down to the bone concerning for osteomyelitis With repeat debridement completed 06/26/2023. 3local culture currently growing Pseudomonas Proteus and Tiara patient is covered with Zosyn we will recommend 6-week course of Zosyn on discharge manage PICC line has been ordered Daughter at the bedside questions were answered Dictation was produced using [employer] dictation software. please excuse any grammatical, word or spelling Time with Patient: Less than 30
[2023-06-27] MEDS: SENNOSIDES-DOCUSATE SODIUM 1 EACH TAB PO SCH (18:14)
--- NOTE | 2023-06-27 19:48 | P.PN ---
Progress Note - Text Progress Note Date: 06/27/23 Patient is a 72-year-old female with a PMH of dementia and hypothyroidism who was brought into the emergency room from [facility] home for a sacral ulcer. History obtained from the chart as the patient was not answering any questions which is baseline for her. Attempted to contact the patient's family at the number listed in the chart with no response. The patient had reportedly developed a sacral ulcer which was noticed last week and that she was started on Augmentin on the along with local wound care. The wound however became foul smelling and the patient was sent to the emergency room for further care. EKG in emergency room revealed sinus rhythm at 86 bpm with poor baseline as revi ewed by me. Laboratory evaluation was remarkable for hemoglobin of 11.1, ESR 78, sodium 133, BUN 24, creatinine 0.36, CRP 17.6, albumin 2.9. ED documentation reviewed and case discussed with ED provider. 06/22/2023: I assumed care of the patient today. Reclining in bed. It is feeding the patient. Oral intake decreased. Denies any pain. We will answer occasional question. Otherwise appears comfortable. 06/23/2023: Patient eating some with assistance. We'll speak occasional word example hello no etc. Appears comfortable. Surgery Dr. Holman in planning for debridement tomorrow. 06/24/2023: Patient seen this morning. Pending debridement this afternoon. Does answer very simple questions. Appears comfortable otherwise. 06/25/2023: Patient comfortable. No new issues. ID awaiting culture results to finalize antibiotics. custodial maintenance worker following. 06/26/2023: No new issues. Pending culture results to finalize antibiotics per ID. 06/27/2023: Comfortable. Eating small amounts. Pending PICC line placement today. Wound cultures are back. Patient be discharged and IV Zosyn per ID. Discussed with social media analyst. Active Medications Hydrocodone Bitart/Acetaminophen (Hydrocodone/Apap 5-325mg 1 Each Tab) 1 each PO Q4HR PRN PRN Reason: Moderate Pain (Scale 4 to 6) Last Admin: 06/27/23 12:45 Dose: 1 each Cholecalciferol (Cholecalciferol 125 Mcg (5000 Iu) Tablet) 125 mcg PO DAILY@0700 WOOD Last Admin: 06/27/23 05:26 Dose: 125 mcg Enoxaparin Sodium (Enoxaparin 40 Mg/0.4 Ml Syringe) 40 mg SQ DAILY [facility] Last Admin: 06/27/23 08:47 Dose: 40 mg Escitalopram Oxalate (Escitalopram 20 Mg Tab) 20 mg PO DAILY@0700 [facility] Last Admin: 06/27/23 05:29 Dose: 20 mg Hydromorphone HCl (Hydromorphone 0.5 Mg/0.5 Ml Syringe) 0.5 mg IVP Q3HR PRN PRN Reason: Moderate Pain (Scale 4 to 6) Last Admin: 06/26/23 08:34 Dose: 0.5 mg Sodium Chloride (Saline 0.9%) 1,000 mls @ 75 mls/hr IV .[id number] [facility] Last Admin: 06/27/23 14:20 Dose: Not Given Piperacillin Sod/Tazobactam (Sod 3.375 gm/ Sodium Chloride) 100 mls @ 25 mls/hr IVPB Q8HR [facility]; Protocol Last Admin: 06/27/23 16:04 Dose: 25 mls/hr Levothyroxine Sodium (Levothyroxine 25 Mcg Tab) 25 mcg PO DAILY@0700 [facility] Last Admin: 06/27/23 05:26 Dose: 25 mcg Lorazepam (Lorazepam 1 Mg Tab) 1 mg PO TID PRN PRN Reason: Agitation Memantine (Memantine 10 Mg Tab) 10 mg PO BID@0700,1900 [facility] Last Admin: 06/27/23 18:14 Dose: 10 mg Naloxone HCl (Naloxone 0.4 Mg/Ml 1 Ml Vial) 0.2 mg IV Q2M PRN PRN Reason: Opioid Reversal Petrolatum (Zinc Oxide Paste (Z-Guard) 1 Applic Applic) 1 applic TOPICAL DAILY [facility] Last Admin: 06/27/23 08:48 Dose: 1 applic Senna/Docusate Sodium (Sennosides-Docusate Sodium 1 Each Tab) 2 each PO HS@1900 [facility] Last Admin: 06/27/23 18:14 Dose: 2 each Tobramycin (Tobramycin 0.3% Ophth Drops 5 Ml Btl) 1 drops BOTH EYES Q4HR [facility] Last Admin: 06/27/23 16:06 Dose: 1 drops Past Medical History Past Medical History: Dementia, Thyroid Disorder Additional Past Medical History / Comment(s): "Recent UTI, finished antibiotics today." History of Any Multi-Drug Resistant Organisms: None Reported Past Surgical History: Bladder Surgery Additional Past Surgical History / Comment(s): Bladder lift, nasal surgery, foot surgery. Past Anesthesia/Blood Transfusion Reactions: No Reported Reaction, Motion Sickness Additional Past Anesthesia/Blood Transfusion Reaction / Comment(s): "WORK UP DURING SURGERY WITH FOOT SURGERY" Past Psychological History: Anxiety, Bipolar Smoking Status: Former smoker, Unknown if ever smoked Past Alcohol Use History: None Reported Past Drug Use History: None Reported - Past Family History Father Family Medical History: Cancer Sister(s) Family Medical History: Cancer On examination: VITAL SIGNS: 98.6, 76, 15, 101/70, 100% on 3 L GENERAL APPEARANCE: Thin built, reclining in bed awake but in distress. Loss of muscle mass. HEENT: Normal external appearance of nose and ear. Oral cavity normal EYES: Pupils equal. Conjunctiva normal. NECK: JVD not raised. Mass not palpable. RESPIRATORY: Respiratory effort normal. Lungs clear to auscultation. CARDIOVASCULAR: First and second sounds normal. No edema. ABDOMEN: Soft. Liver and spleen not palpable. No tenderness. No mass palpable. PSYCHIATRY: Looking at. We'll answer occasional question. MUSCULAR skeletal: OA INVESTIGATIONS, reviewed in the clinical context: Sacral wound culture: Pseudomonas, Proteus mirabilis TSH 1.9 June 23: Creatinine 0.29 June 21: Consent 0.6 hemoglobin 10 platelets 309 sodium 137 potassium 3.7 creatinine 0.31 Albumin 2.9 Assessment and plan: -Large sacral ulcer, failed outpatient treatment Local wound care. Surgical debridement done on June 24. Chest positive for Pseudomonas and Proteus mirabilis Antibiotic changed to IV Zosyn -Hypothyroidism, Synthroid 25 g -Severe cognitive impairment due to late onset Alzheimer's dementia -Severe protein calorie malnutrition from decreased oral intake Encourage oral intake. Ensure. -Bipolar/anxiety Lexapro 20 mg a day -Primary osteoarthritis Tylenol as needed -DO NOT RESUSCITATE 4 PICC line today. Plan for discharge to rehab tomorrow.
--- NOTE | 2023-06-27 22:42 | P.PN ---
Subjective Progress Note Date: 06/27/23 Principal diagnosis: Wound VAC intact. Pain controlled. Recommend high protein diet for optimal wound recovery. Wound vac orders written. Objective - Vital Signs Vital signs: Vital Signs Temp 98.6 F 06/27/23 19:11 Pulse 76 06/27/23 19:11 Resp 15 06/27/23 19:11 BP 111/70 06/27/23 19:11 Pulse Ox 100 06/27/23 19:11 FiO2 Intake & Output 06/27/23 06/27/23 06/28/23 06:59 18:59 06:59 Output Total 700 975 Balance -700 -975 Output: Urine 700 975 Other: Voiding Method Indwelling Catheter Indwelling Catheter Indwelling Catheter - Labs CBC & Chem 7: 06/21/23 07:45 06/25/23 08:28 Labs: Microbiology - Last 24 Hours (Table) 06/25/23 19:15 Gram Stain - Preliminary Back Wound Culture - Preliminary Pseudomonas aeruginosa 06/24/23 19:15 Gram Stain - Preliminary Back Wound Culture - Preliminary Pseudomonas aeruginosa Proteus mirabilis Tiara albicans
[2023-06-28] MEDS: PIPERACILLIN-TAZOBACTAM 3.375 GM in SODIUM CHLORIDE 0.9% 100 ML IVPB SCH ×2 (00:45→09:48)
[2023-06-28] MEDS: TOBRAMYCIN 0.3% OPHTH DROPS 5 ML BTL BOTH EYES SCH ×5 (00:45→15:35)
[2023-06-28] MEDS: SODIUM CHLORIDE 0.9% 1,000 ML IV SCH (00:49)
[2023-06-28] MEDS: ESCITALOPRAM 20 MG TAB PO SCH ×2 (06:10→09:48)
[2023-06-28] MEDS: CHOLECALCIFEROL 125 MCG (5000 IU) TABLET PO SCH (06:10)
[2023-06-28] MEDS: LEVOTHYROXINE 25 MCG TAB PO SCH (06:10)
[2023-06-28] MEDS: MEMANTINE 10 MG TAB PO SCH (06:10)
[2023-06-28 07:49] VITALS: PULSE 75
[2023-06-28] MEDS: ZINC OXIDE PASTE (Z-GUARD) 1 APPLIC TOPICAL SCH (09:47)
[2023-06-28] MEDS: ENOXAPARIN 40 MG/0.4 ML SYRINGE SQ SCH (09:48)
--- NOTE | 2023-06-28 14:00 | P.OP ---
Date of Procedure: 06/28/23 Description of Procedure: Preoperative Diagnosis: Need for long-term IV antibiotic access. Postoperative Diagnosis: Same. Procedure(s) Performed: Ultrasound-guided cannulation left basilic vein. Insertion of peripherally inserted central catheter under fluoroscopic guidance. Anesthesia: local 1% lidocaine kylah Surgeon: Mina Estimated Blood Loss (ml): 5 IV fluids (ml): 0 Urine output (ml): 0 Pathology: none sent Condition: stable Disposition: no change Indications for Procedure: Patient requires long-term IV antibiotics as an outpatient patient is offered a PICC line to allow for intravenous administration of antibiotics. Consent was obtained from family Description of Procedure: Patient was brought to the special procedure suite. The left upper extremity sterilely prepped and draped in usual manner. Ultrasound was utilized to identify the basilic vein which was normally compressible free of visible thrombus. Permenant image was stored. 1% Xylocaine was utilized for local anesthesia tissues overlying the vein. Through this anesthetized area and with the aid of ultrasound a micropuncture needle was utilized to cannulate the vein. Once cannulated, Softip guidewire was advanced into the vein. The needle was withdrawn and a micropuncture sheath and dilator advanced over the guidewire. The guidewire was withdrawn and exchanged for the PICC guidewire and measured 38 cm to the cavoatrial junction. The catheter was cut to size and advanced into the cavoatrial junction without resistance. The sheath was peeled away. Blood was easily withdrawn through the catheter and the catheter was then flushed with heparinized saline solution and secured to the skin. Patient tolerated procedure well and was returned to their room in satisfactory and stable condition.
[2023-06-28 14:47] VITALS: BP 92/59; RESP 19; TEMP 98.9
[2023-06-28] MEDS ORDERED: CEFEPIME 2 GM in SODIUM CHLORIDE 0.9% 100 ML IVPB SCH (16:00)
--- NOTE | 2023-06-28 21:33 | P.DS ---
Providers Date of admission: 06/20/23 20:56 Expected date of discharge: 06/28/23 Attending physician: Taz Lewis Consults: 06/21/23 02:45 Consult Physician Urgent Consulting Provider: Awilda Bates Consult Reason/Comments: Sacral ulcer Do you want consulting provider notified?: Yes 06/21/23 13:23 Consult Physician Urgent Consulting Provider: Angelika Krause Consult Reason/Comments: right gluteal infected pressure ulcer I&D and cultures Do you want consulting provider notified?: Yes Primary care physician: [facility] Course: Patient is a 72-year-old female with a PMH of dementia and hypothyroidism who was brought into the emergency room from [facility] home for a sacral ulcer. History obtained from the chart as the patient was not answering any questions which is baseline for her. Attempted to contact the patient's family at the number listed in the chart with no response. The patient had reportedly developed a sacral ulcer which was noticed last week and that she was started on Augmentin on the along with local wound care. The wound however became foul smelling and the patient was sent to the emergency room for further care. EKG in emergency room revealed sinus rhythm at 86 bpm with poor baseline as reviewed by me. Laboratory evaluation was remarkable for hemoglobin of 11.1, ESR 78, sodium 133, BUN 24, creatinine 0.36, CRP 17.6, albumin 2.9. ED documentation reviewed and case discussed with ED provider. 06/22/2023: I assumed care of the patient today. Reclining in bed. It is feeding the patient. Oral intake decreased. Denies any pain. We will answer occasional question. Otherwise appears comfortable. 06/23/2023: Patient eating some with assistance. We'll speak occasional word example hello no etc. Appears comfortable. Surgery Dr. Holman in planning for debridement tomorrow. 06/24/2023: Patient seen this morning. Pending debridement this afternoon. Does answer very simple questions. Appears comfortable otherwise. 06/25/2023: Patient comfortable. No new issues. ID awaiting culture results to finalize antibiotics. relief worker following. 06/26/2023: No new issues. Pending culture results to finalize antibiotics per ID. 06/27/2023: Comfortable. Eating small amounts. Pending PICC line placement today. Wound cultures are back. Patient be discharged and IV Zosyn per ID. Discussed with socially responsible investment adviser. 06/28/2023: PICC line placed today. Clinical status unchanged. Discharged to [facility]. Past Medical History Past Medical History: Dementia, Thyroid Disorder Additional Past Medical History / Comment(s): "Recent UTI, finished antibiotics today." History of Any Multi-Drug Resistant Organisms: None Reported Past Surgical History: Bladder Surgery Additional Past Surgical History / Comment(s): Bladder lift, nasal surgery, foot surgery. Past Anesthesia/Blood Transfusion Reactions: No Reported Reaction, Motion Sickness Additional Past Anesthesia/Blood Transfusion Reaction / Comment(s): "WORK UP DURING SURGERY WITH FOOT SURGERY" Past Psychological History: Anxiety, Bipolar Smoking Status: Former smoker, Unknown if ever smoked Past Alcohol Use History: None Reported Past Drug Use History: None Reported - Past Family History Father Family Medical History: Cancer Sister(s) Family Medical History: Cancer On examination: VITAL SIGNS: 98.9, 19, 92/59, 97% on 4 L GENERAL APPEARANCE: Thin built, reclining in bed awake but in distress. Loss of muscle mass. HEENT: Normal external appearance of nose and ear. Oral cavity normal EYES: Pupils equal. Conjunctiva normal. NECK: JVD not raised. Mass not palpable. RESPIRATORY: Respiratory effort normal. Lungs clear to auscultation. CARDIOVASCULAR: First and second sounds normal. No edema. ABDOMEN: Soft. Liver and spleen not palpable. No tenderness. No mass palpable. PSYCHIATRY: Looking at. We'll answer occasional question. MUSCULAR skeletal: OA INVESTIGATIONS, reviewed in the clinical context: Sacral wound culture: Pseudomonas, Proteus mirabilis TSH 1.9 June 23: Creatinine 0.29 June 21: Consent 0.6 hemoglobin 10 platelets 309 sodium 137 potassium 3.7 creatinine 0.31 Albumin 2.9 Assessment and plan: -Large sacral ulcer, failed outpatient treatment Local wound care. Surgical debridement done on June 24. Culture positive for Pseudomonas and Proteus mirabilis Antibiotic changed to IV cefepime 2 g IV every 8-total 120. And Flagyl for 30 days Follow-up in wound care center -Hypothyroidism, Synthroid 25 g -Severe cognitive impairment due to late onset Alzheimer's dementia -Severe protein calorie malnutrition from decreased oral intake Encourage oral intake. Ensure. -Bipolar/anxiety Lexapro 20 mg a day -Primary osteoarthritis Tylenol as needed -DO NOT RESUSCITATE Plan placed today. Disposition: [place] [facility] Plan - Discharge Summary Discharge Rx Participant: Yes New Discharge Prescriptions: New metroNIDAZOLE [Flagyl] 500 mg PO TID #90 tab Cefepime [Maxipime] 2 gm IVPB Q8H #120 each Continue LORazepam [Ativan] 1 mg PO TID PRN PRN Reason: Agitation Memantine [Namenda] 10 mg PO BID@0700,1900 Levothyroxine Sodium [Synthroid] 25 mcg PO DAILY@0700 Magnesium Hydroxide [Milk of Magnesia] 2,400 mg PO DAILY PRN PRN Reason: Constipation Folic Acid 0.4 mg PO DAILY@0700 Sennosides/Docusate Sodium [Senna Plus 8.6-50 mg Tablet] 2 tab PO HS@1900 Tobramycin 0.3% Ophth Soln [Tobrex 0.3% Ophth Soln] 1 drop BOTH EYES Q4HR traMADol HCL 50 mg PO TID@06,14,20 PRN PRN Reason: Pain Nystatin 100,000Unit/gm Cream [Mycostatin Cream] 1 applic TOPICAL BID PRN PRN Reason: UNDER BREAST Acetaminophen [Tylenol Arthritis] 650 mg PO Q8H PRN PRN Reason: Pain Cholecalciferol [Vitamin D3 (125 Mcg = 5000 Iu)] 125 mcg PO DAILY@0700 Acetaminophen [Tylenol Arthritis] 650 mg PO DAILY@0700 Escitalopram [Lexapro] 20 mg PO DAILY@0700 Discontinued Amoxic-Pot Clav 500-125 mg [Augmentin 500-125 mg] 1 tab PO TID@0600,1400,2200 Discharge Medication List Acetaminophen [Tylenol Arthritis] 650 mg PO DAILY@0700 08/22/21 [History] Acetaminophen [Tylenol Arthritis] 650 mg PO Q8H PRN 08/22/21 [History] Cholecalciferol [Vitamin D3 (125 Mcg = 5000 Iu)] 125 mcg PO DAILY@0700 08/22/21 [History] LORazepam [Ativan] 1 mg PO TID PRN 08/22/21 [History] Levothyroxine Sodium [Synthroid] 25 mcg PO DAILY@0700 08/22/21 [History] Memantine [Namenda] 10 mg PO BID@0700,1900 08/22/21 [History] Nystatin 100,000Unit/gm Cream [Mycostatin Cream] 1 applic TOPICAL BID PRN 08/22/21 [History] Magnesium Hydroxide [Milk of Magnesia] 2,400 mg PO DAILY PRN 10/05/21 [History] Escitalopram [Lexapro] 20 mg PO DAILY@0700 02/13/22 [History] Folic Acid 0.4 mg PO DAILY@0700 06/20/23 [History] Sennosides/Docusate Sodium [Senna Plus 8.6-50 mg Tablet] 2 tab PO HS@1900 [History] Tobramycin 0.3% Ophth Soln [Tobrex 0.3% Ophth Soln] 1 drop BOTH EYES Q4HR 06/20/23 [History] traMADol HCL 50 mg PO TID@06,14,20 PRN 06/20/23 [History] Cefepime [Maxipime] 2 gm IVPB Q8H #120 each 06/28/23 [Rx] metroNIDAZOLE [Flagyl] 500 mg PO TID #90 tab 06/28/23 [Rx] Follow up Appointment(s)/Referral(s): [facility] [NON-STAFF] - 06/28/23 7:00 pm [facility], [REFERRING] - 06/28/23 6:00 pm [facility] [NON-STAFF] - 2 Weeks Phoenix Blakely MD [Primary Care Provider] - 1-2 days Awilda Bates MD [STAFF PHYSICIAN] - 1 Week (please call the office to schedule a follow up appointment) Ambulatory/Diagnostic Orders: Basic Metabolic Panel [LAB.AMB] Location: None Selected C Reactive Protein [LAB.AMB] Location: None Selected Complete Blood Count w/diff [LAB.AMB] Location: None Selected Erythrocyte Sedimentation Rate [LAB.AMB] Location: None Selected Activity/Diet/Wound Care/Special Instructions: [facility] [address] [place] [address] [id number], [place] [address] Discharge Disposition: HOME WITH HOME HEALTH SERVICES
--- NOTE | 2023-07-02 12:21 | CDI ---
Documentation Clarification Form Date: 07/02/2023 12:05:22 PM From: Amelia Davis Admit Date: 06/20/2023 08:56:00 PM Patient Name: Adry Cramer Visit Number: [id number] Discharge Date: 06/28/2023 06:57:00 PM ATTENTION: The Clinical Documentation Specialists (CDI) and [facility] Coding Staff appreciate your assistance in clarifying documentation. Please respond to the clarification below the line at the bottom and electronically sign. The CDI & [facility] Coding staff will review the response and follow-up if needed. Please note: Queries are made part of the Legal Health Record. If you have any questions, please contact the author of this message via ITS. Dr. Taz Lewis Per ED note "Possible sepsis". Sepsis diagnosis is not carried through chart. Based on this information and the findings below, did patient have sepsis or was it ruled out. History/Risk Factors: Stage 4 sacral ulcer proteus and Psuedomonas failed outpatient therapy. Clinical Indicators: WBC 7.6 Lactic acid: 1.2 Blood cultures: negative. Wound culture pseudomonas and proteus Vitals signs: Treatment: debridement, IV antibiotics ID Consult: foul smelling drainage. need to cover for both gram negative and positive Antibiotics: Vancomycin, Unasyn, Tobrex, Cefepime, Zosyn Is there an additional diagnosis that is clinically appropriate for this patient? [ ] Sepsis, present on admission [ ] Sepsis, developed during stay, not present on admission [ + ] Sepsis ruled out [ ] Severe Sepsis with organ failure [ ] Septic Shock [ ] SIRS, without underlying infectious process [ ] Other, please specify [ ] Unable to determine SIRS Criteria: 2 or more of the following may indicate SIRS Temperature < 96.8F (36C) or > 101.0F (38.3C) Heart Rate > 90 bpm Respiratory Rate > 20 breaths/min or PaCO2 < 32 mmHg White Blood Cell Count > 12,000 or < 4,000 cells/mm3 or > 10% bands MTDD
--- NOTE | 2023-07-05 15:07 | P.PN ---
Subjective Progress Note Date: 06/28/23 Principal diagnosis: Reason for follow-up is infected pressure ulcer patient is a 72-year-old female with a past medical history significant for dementia history of recurrent UTI hypothyroidism resident of the [facility] home the patient has been brought into the hospital concerning for worsening wound to the right gluteal area concerning for infected pressure ulcer and ezio lulitis Patient is status post Sharp excisional debridement with blade and scissor of 7 x 6 cm sacrococcygeal wound to muscle and bone. Completed by general surgery on 06/24/2023.Patient did have a repeat Sharp excisional debridement with blade and scissor of 9 x 7 x 2 cm sacrococcygeal wound to m uscle and bone. My surgery on 06/26/2023. On today's evaluation that is 06/28/2023 the patient continues to be afebrile, patient is breathing comfortably on room air without need for supplemental oxy gen , the patient does not seem to be any distressed no vomiting diarrhea or any other changes reported by the nursing staff patient cannot provide any history. No new labs has been obtained today culture finalized with Pseudomonas and Proteus and Tiara Objective - Vital Signs Vital signs: Vital Signs Temp 97.3 F L 06/28/23 07:42 Pulse 75 06/28/23 07:42 Resp 16 06/28/23 07:42 BP 105/67 06/28/23 07:42 Pulse Ox 95 06/28/23 07:42 FiO2 Intake & Output 06/27/23 06/28/23 06/28/23 18:59 06:59 18:59 Output Total 975 1650 Balance -975 -1650 Output: Urine 975 1650 Other: Voiding Method Indwelling Catheter Indwelling Catheter Indwelling Catheter - Exam GENERAL DESCRIPTION: An elderly female lying in bed in no distress RESPIRATORY SYSTEM: Unlabored breathing , decreased breath sounds at bases HEART: S1 S2 regular rate and rhythm , ABDOMEN: Soft , no tenderness EXTREMITIES: No edema feet - Labs CBC & Chem 7: 06/21/23 07:45 06/25/23 08:28 Labs: Microbiology - Last 24 Hours (Table) 06/25/23 19:15 Gram Stain - Preliminary Back Wound Culture - Preliminary Pseudomonas aeruginosa 06/24/23 19:15 Gram Stain - Preliminary Back Wound Culture - Preliminary Pseudomonas aeruginosa Proteus mirabilis Tiara albicans Assessment and Plan (1) Infected pressure ulcer Status: Acute Code(s): L89.90 - PRESSURE ULCER OF UNSPECIFIED SITE, UNSPECIFIED STAGE; L08.9 - LOCAL INFECTION OF THE SKIN AND SUBCUTANEOUS TISSUE, UNSP SNOMED Code(s): 952299073 (2) Stage 4 skin ulcer of sacral region Status: Acute Code(s): L98.429 - NON-PRESSURE CHRONIC ULCER OF BACK WITH UNSPECIFIED SEVERITY SNOMED Code(s): 24373049 Plan: 1-patient presented to hospital with worsening wound to the right gluteal area with unstageable pressure ulcer with significant necrotic tissue and surrounding redness and foul-smelling drainage reviewed need to cover for both gram-positive as well as gram-negative pathogen 2patient has been evaluated by general surgery and the patient is status post debridement of the sacrococcygeal ulcer which was extending all the way down to the bone concerning for osteomyelitis With repeat debridement completed 06/26/2023. 3local culture currently growing Pseudomonas Proteus and Tiara patient is covered with Zosyn 4patient antibiotic has been switched over to cefepime 2 g every 8 hours along with oral Flagyl and Zosyn dosing will need to be every 6 hours as per discussion with the pharmacist needs a weekly monitoring of CRP and a sed rate and a close outpatient follow-up Dictation was produced using [employer] dictation software. please excuse any grammatical, word or spelling Time with Patient: Less than 30
--- NOTE | 2023-07-06 11:52 | IR ---
EXAMINATION TYPE: IR cvc insert >=5 years DATE OF EXAM: 06/28/2023 FLUOROSCOPY Abx, 0.1m 0.0434DAP, 4F 38cm lt basilic PICC. 8 images provided. 4.34 uGycm2.
== END 2023-06-28 18:57 | disposition home health service (06) | DRG 570 ==
LOC: EC 17:20 → 4SSUR 20:56 → 5NMEDONC 06-21 04:07
PROVIDERS: ADMIT Hospitalist; ATTEND Hospitalist
PROC: 0JB90ZZ Excision of Buttock Subcutaneous Tissue and Fascia, Open Approach (ICD-10-PCS; principal; 2023-06-24 12:43)
PROC: 0QB10ZZ Excision of Sacrum, Open Approach (ICD-10-PCS; principal; 2023-06-24 12:43)
PROC: 0QB10ZZ Excision of Sacrum, Open Approach (ICD-10-PCS; 2023-06-26)
PROC: 02HV33Z Insertion of Infusion Device into Superior Vena Cava, Percutaneous Approach (ICD-10-PCS; 2023-06-28)
DX: L89.154 Pressure ulcer of sacral region, stage 4 (principal); E43 Unspecified severe protein-calorie malnutrition; F02.83 Dementia in other diseases classified elsewhere, unspecified severity, with mood disturbance; F02.84 Dementia in other diseases classified elsewhere, unspecified severity, with anxiety; M46.28 Osteomyelitis of vertebra, sacral and sacrococcygeal region; Z68.25 Body mass index [BMI] 25.0-25.9, adult; E03.9 Hypothyroidism, unspecified; B96.4 Proteus (mirabilis) (morganii) as the cause of diseases classified elsewhere; B96.5 Pseudomonas (aeruginosa) (mallei) (pseudomallei) as the cause of diseases classified elsewhere; Z66 Do not resuscitate; F31.9 Bipolar disorder, unspecified; F41.1 Generalized anxiety disorder; G30.1 Alzheimer's disease with late onset; L89.322 Pressure ulcer of left buttock, stage 2; L89.319 Pressure ulcer of right buttock, unspecified stage; L89.611 Pressure ulcer of right heel, stage 1; M19.91 Primary osteoarthritis, unspecified site; Z74.01 Bed confinement status; Z79.890 Hormone replacement therapy; Z79.899 Other long term (current) drug therapy; Z87.440 Personal history of urinary (tract) infections; Z28.311 Partially vaccinated for COVID-19; Z71.3 Dietary counseling and surveillance
CPT/HCPCS: 36415; 36573; 80048; 80053; 80202; 81001; 82565; 83605; 84443; 85025; 85652; 86140; 87040; 87070; 87075; 87077; 87086; 87186; 87205; 88304; 88307; 88311; 94760; 96361; 96365; 96366; 96367; 96372; 99285